=== PATIENT | male | born 1955 | race African-American/Black ===

== ENCOUNTER 2016-11-10 19:46 | Inpatient (IN) | payer MEDICAID, MEDICARE, OTHER ==
[2016-11-10 20:59] LABS: Hematocrit 52.1 % (42.0-52.0); Mean Platelet Volume 9.1 fL (7.4-10.4); Red Blood Cell (RBC) Count 5.06 mill/uL (4.70-6.10)
[2016-11-10 21:09] LABS: Neutrophil 61 % (42-75); White Blood Cell (WBC) Count 4.4 thou/uL (4.8-10.8)
--- NOTE | 2016-11-10 21:11 | RAD ---
PORTABLE UPRIGHT CHEST ONE VIEW: History: 61-year-old male with altered mental status, dyspnea, shortness of breath. Comparison: 09-02-16 FINDINGS: Heart size is normal. The lungs are clear. Monitor leads overlie the chest. IMPRESSION: No acute intrathoracic disease. POS: [facility]
[2016-11-10 21:19] LABS: ALT (SGPT) 76 U/L (8-55); AST (SGOT) 130 U/L (5-34); Alkaline Phosphatase 177 U/L (40-150); Anion Gap 20 mmol/L (10-20); BUN (Urea Nitrogen) 15 mg/dL (8.4-25.7); CK (CPK) 232 U/L (30-200); Calc. Creatinine Clearance 0 mL/min (70-130); Calcium 9.7 mg/dL (7.8-10.44); Carbon Dioxide 15 mmol/L (22-29); Chloride 106 mmol/L (98-107); Estimated GFR-MDRD 53; Globulin 6.6 g/dL (2.4-3.5); Magnesium 1.8 mg/dL (1.6-2.6); Protein, Total 9.6 g/dL (6.0-8.3)
[2016-11-10 21:20] LABS: Troponin I 0.016 ng/mL (< 0.028)
[2016-11-10 21:41] LABS: PTT 21.7 SEC (22.9-36.1)
--- NOTE | 2016-11-10 22:14 | CT ---
BRAIN CT WITHOUT IV CONTRAST: History: 61-year-old male with altered mental status and shortness of breath. Patient was found down in long term cell at 4 p.m. Comparison: 10-28-16 FINDINGS: No focal mass or midline shift. No intra or extraaxial hemorrhage. Sinuses and mastoids are clear. IMPRESSION: No acute intracranial process. No mass or bleed. POS: [facility]
[2016-11-10] MEDS ORDERED: Lactulose 10 GM/15 ML Oral Solution PR SCH (23:00)
[2016-11-11] MEDS ORDERED: Ondansetron HCl/PF 4 MG/2 ML Vial IVP PRN ×2 (00:05→00:13)
[2016-11-11] MEDS ORDERED: Ondansetron ODT 4 MG TAB SL PRN (00:05)
[2016-11-11] MEDS ORDERED: Dextrose 50% Abboject 50 ML SYRINGE SLOW IVP PRN (00:13)
[2016-11-11] MEDS ORDERED: HumaLOG 300 UNITS/3 ML VIAL SC PRN (00:13)
[2016-11-11] MEDS ORDERED: Guaifenesin DM 100-10/5 ML UDCUP PO PRN (00:13)
[2016-11-11] MEDS ORDERED: Dextrose 5% in Water 1,000 ML IV PRN (00:13)
[2016-11-11] MEDS ORDERED: Acetaminophen 325 MG TAB PO PRN (00:13)
[2016-11-11] MEDS ORDERED: Sodium Chloride 0.9% 1,000 ML IV SCH ×2 (00:15)
[2016-11-11] MEDS: Dextrose 5 % And 0.9 % NaCl 1,000 ML IV SCH ×2 (01:48→17:15)
[2016-11-11] MEDS: Scopolamine 1.5 mg/72 hour Patch TOP SCH (01:50)
--- NOTE | 2016-11-11 04:07 | HP ---
DATE OF ADMISSION: 11/10/2016 REASON FOR ADMISSION: Hepatic encephalopathy. HISTORY OF PRESENTING ILLNESS: Please note, I have seen and examined the patient on 11/10/2016. The patient was brought by corrections officers as he was found unresponsive on the floor. They went to give him his afternoon medications and apparently found him on the floor unresponsive. He was incontinent and had bowel and urine all over the place. The patient has had multiple hospitalizations here for hepatic encephalopathy and being noncompliant with medications. He is currently not oriented. He barely opens his eyes and goes back to sleep. He is maintaining airway. His labs done in the ER shows ammonia levels of 76. The CT of the brain done did not reveal any acute intracranial abnormalities. PAST MEDICAL AND SURGICAL HISTORY: History of known cirrhosis with multiple hospitalizations here, in fact he was recently discharged on the of last month, chronic atrial fibrillation, COPD, hepatitis C, cirrhosis, GERD, hypertension, prior EGDs, prior TIPS procedure. CURRENT MEDICATIONS: Patient is on spironolactone 50 mg p.o. q.a.m., Remeron 30 mg p.o. at bedtime, aspirin 81 mg p.o. daily, trazodone 50 mg p.o. at bedtime , gabapentin 300 mg p.o. daily, Protonix 40 mg p.o. daily, folic acid 1 mg p.o. daily, vitamin B12 of 1000 mcg p.o. daily, Cardizem 60 mg twice daily and Cardizem-CD 240 mg daily, Flexeril 10 mg at bedtime, thiamine 100 mg p.o. daily , lactulose 120 mL three times daily, Librium 25 mg twice daily. ALLERGIES: Allergic to PENICILLIN. PERSONAL HISTORY: Per prior records, he has been incarcerated with [facility]. Prior history of smoking. No current alcohol or illicit drugs. FAMILY HISTORY: Per prior records, no inheritable diseases, REVIEW OF SYSTEMS: Cannot be obtained as patient is not oriented. PHYSICAL EXAMINATION: GENERAL: The patient is a 61-year-old male who is currently very lethargic, barely arousable. He is maintaining airway. VITAL SIGNS: Blood pressure 146/94, pulse 110 per minute, respiratory rate 20 per minute, temperature 98.1 degrees Fahrenheit, saturating 100% on room air. NECK: Supple, no elevated JVD. HEENT: Eyes, extraocular muscles intact, pupils are reacting to light. Oral cavity, mucous membranes are dry. No exudates or congestion. CARDIOVASCULAR SYSTEM: S1 and S2 heard. Irregular rhythm. RESPIRATORY SYSTEM: Air entry 1+ bilateral. Scattered rhonchi plus no rales or wheezes. ABDOMEN: Soft, bowel sounds heard. No tenderness, rigidity, or guarding. EXTREMITIES: No peripheral edema or calf tenderness. VASCULAR SYSTEM: Peripheral pulses 1+ bilateral. No ischemic ulcerations or gangrene. CENTRAL NERVOUS SYSTEM: No gross focal deficits seen. Patient is very lethargic and is not oriented. PSYCHIATRIC SYSTEM: Cannot be assessed as patient is lethargic and not oriented. LABORATORY DATA AND X-RAY FINDINGS: White count of 4.4, hemoglobin and hematocrit of 16 and 52, platelet count is 130 with MCV of 103 and 61% neutrophils. PT/INR is 18 and 1.5, PTT 21. Serum bicarbonate 15, BUN 15, creatinine 1.6, total bilirubin 2.0, AST 130, ALT 76, alkaline phosphatase 177, CK level is 232, BNP is 198, albumin is 3.0. CT of the brain shows no acute intracranial process, no mass or bleed seen. Chest x-ray done shows no acute cardiopulmonary abnormalities. EKG done, shows atrial fibrillation at 132 beats per minute with nonspecific ST-T wave changes. CLINICAL IMPRESSION AND PLAN: Patient will be admitted to IMCU for hepatic encephalopathy. Patient is known to be noncompliant with medications. He is currently incarcerated. He has received 200 grams of lactulose per rectal in the ER and hopefully, he will wake up, and once awake he will take oral lactulose at 20 grams four times daily. We will continue his spironolactone, folic acid, thiamine as before. He does not seem to be having any active infections at present. We will continue most of his home medications. He will be on D5 normal saline at 75 mL per hour until he is fully awake. We will increase his Cardizem to 240 mg twice daily. We will closely monitor for bradycardia or AV block. We will also consult Dr. Chon Rojas who is command and control for Gastroenterology. Patient has lom-yn-lcyibvuh DNR, which was signed on 07/2016, and we will continue him as a DNR unless he revokes his DNR status. [facility] NETWORKMonica
[2016-11-11 05:18] LABS: Mean Platelet Volume 8.8 fL (7.4-10.4); Red Blood Cell (RBC) Count 4.66 mill/uL (4.70-6.10); White Blood Cell (WBC) Count 5.8 thou/uL (4.8-10.8)
[2016-11-11 05:39] LABS: Neutrophil 46 % (42-75)
[2016-11-11 05:57] LABS: ALT (SGPT) 58 U/L (8-55); AST (SGOT) 102 U/L (5-34); Alkaline Phosphatase 136 U/L (40-150); Anion Gap 13 mmol/L (10-20); BUN (Urea Nitrogen) 15 mg/dL (8.4-25.7); Bilirubin, Total 1.7 mg/dL (0.2-1.2); Calc. Creatinine Clearance 0 mL/min (70-130); Calcium 8.8 mg/dL (7.8-10.44); Carbon Dioxide 16 mmol/L (22-29); Chloride 111 mmol/L (98-107); Estimated GFR-MDRD 59; Globulin 5.3 g/dL (2.4-3.5); Protein, Total 7.5 g/dL (6.0-8.3)
[2016-11-11 06:09] VITALS: BMI 31.0
[2016-11-11] MEDS ORDERED: FLU VACC QS2017-18 36 mo. & older 0.5 ML SYRINGE IM ONE (09:00)
[2016-11-11] MEDS: Aspirin 81 mg Enteric Coated Tablet PO SCH (12:43)
[2016-11-11] MEDS: Cyanocobalamin (Vitamin B-12) 1,000 MCG TAB PO SCH (12:43)
[2016-11-11] MEDS: Folic Acid 1 MG TAB PO SCH (12:44)
[2016-11-11] MEDS: Spironolactone 100 MG TAB PO SCH (12:44)
--- NOTE | 2016-11-11 14:42 | PDOC.PN ---
- Subjective Encounter Start Date: 11/11/16 Encounter Start Time: 14:25 Subjective: Nsg reports persistent AMS. Some mumbling to staff but not interactive. - Objective Resuscitation Status: Resuscitation Status DNR:Do Not Resuscitate MAR Reviewed: Yes Vital Signs & Weight: Vital Signs (12 hours) Temp Pulse Resp BP Pulse Ox 11/11/16 14:06 122 H 11/11/16 11:18 97.7 F 122 H 20 112/75 100 11/11/16 07:27 97.8 F 105 H 18 100 11/11/16 07:15 97.6 F 115 H 20 121/96 H 100 11/11/16 04:00 97.8 F 105 H 18 134/87 100 I&O: 11/10/16 11/11/16 11/12/16 06:59 06:59 06:59 Intake Total 315 Balance 315 Result Diagrams: 11/11/16 04:35 11/11/16 04:35 Additional Labs: Accuchecks 11/11/16 11/11/16 11/11/16 11:48 06:32 01:48 POC Glucose 73 75 65 L Laboratory Tests 01/13/16 01/13/16 01/13/16 11:48 11:48 11:48 Potassium 4.6 Carbon Dioxide 19 L Total Bilirubin 2.2 H AST 97 H Ammonia 118 H TSH 3rd Generation 1.4893 U Benzodiazepines Scrn U Cocaine Metab Screen 01/13/16 01/14/16 11/10/16 13:25 04:40 20:34 Potassium Carbon Dioxide Total Bilirubin AST Ammonia 53 76 H TSH 3rd Generation U Benzodiazepines Scrn Detected H U Cocaine Metab Screen Detected H EKG Reviewed by me: Yes (Tele - A-fib with RVR in 120's) Phys Exam - Physical Examination lethargic, opens eyes to name, minimal tracking HEENT: PERRLA, oral pharynx no lesions Neck: no JVD, supple Respiratory: no wheezing, clear to auscultation bilateral tachycardic Cardiovascular: irregular Gastrointestinal: soft, non-tender, no distention, positive bowel sounds Musculoskeletal: no edema, pulses present Neurological: normal sensation, moves all 4 limbs Skin: normal turgor, cap refill <2 seconds Dx/Plan (1) Hepatic encephalopathy Code(s): K72.90 - HEPATIC FAILURE, UNSPECIFIED WITHOUT COMA Status: Chronic Comment: Acute/Chronic encephalopathy multifactorial, supportive, Lactulose 40gm CA QID prn (2) Atrial fibrillation with RVR Code(s): I48.91 - UNSPECIFIED ATRIAL FIBRILLATION Status: Acute Comment: Rate variable, resume Cardizem (3) Hyperammonemia Code(s): E72.20 - DISORDER OF UREA CYCLE METABOLISM, UNSPECIFIED Status: Acute Comment: Appears chronic, Lactulose (4) CKD (chronic kidney disease) stage 3, GFR 30-59 ml/min Code(s): N18.3 - CHRONIC KIDNEY DISEASE, STAGE 3 (MODERATE) Status: Chronic Comment: Appears baseline CKD (5) Hepatitis C Code(s): B19.20 - UNSPECIFIED VIRAL HEPATITIS C WITHOUT HEPATIC COMA Status: Chronic Qualifiers: (6) Hypertension Code(s): I10 - ESSENTIAL (PRIMARY) HYPERTENSION Status: Chronic Qualifiers: Comment: Stable currently - Plan adoption social worker, DVT proph w/SCDs Stable overall -: Resume Lactulose CA -: Resume Cardizem 240mg BID -: Consider Palliative care -: AM lab: Ammonia, CMP * .
[2016-11-11] MEDS: Lactulose 10 GM/15 ML Oral Solution PR SCH ×2 (17:15→22:21)
--- NOTE | 2016-11-11 18:00 | CON ---
DATE OF CONSULTATION: 11/11/2016 CHIEF COMPLAINT: Confusion. HISTORY OF PRESENT ILLNESS: Mr. Dominguez is a 61-year-old man who was admitted with altered mental sta tus. He was apparently found unresponsive his present fell yesterday afternoon having been incontin ent of feces and urine. He was confused and obtunded and transferred to the hospital for further ca re. He was admitted and given lactulose enema and currently the patient only arouses enough to moan and lift his head, but he does not interact verbally. He has had no known bloody stool output or v omiting. He has had multiple hospitalizations at [facility] over the last couple years with altered mental status. PAST MEDICAL HISTORY: Hepatitis C, cirrhosis, atrial fibrillation, COPD, hypertension, gastroesopha geal reflux disease. PAST SURGICAL HISTORY: EGD and TIPS procedure. FAMILY HISTORY: Negative for GI malignancy. SOCIAL HISTORY: He had a positive tox screen for cocaine back in May. Otherwise, this history is not immediately known. ALLERGIES: PENICILLIN. CURRENT INPATIENT MEDICATIONS: Include spironolactone 50 mg daily, SCOPOLAMINE, THIAMINE, TRAZODONE , DILTIAZEM, B12, ASPIRIN, FOLIC ACID, and LACTULOSE. REVIEW OF SYSTEMS: Unobtainable as the patient is confused and moaning. PHYSICAL EXAMINATION: VITAL SIGNS: Temperature 97.7, pulse 122, blood pressure 108/71. GENERAL: He moans and is otherwise not interactive. EYES: Have no scleral icterus. OROPHARYNX: Clear, without lesions. NECK: No cervical or supraclavicular lymphadenopathy. LUNGS: Clear to auscultation bilaterally. HEART: Tachycardic, S1, S2. ABDOMEN: Soft, without guarding. No obvious distention with ascites. Bowel sounds are present. EXTREMITIES: Trace lower extremity edema. LABORATORY DATA AND IMAGING: White blood cell count 5.8, hemoglobin 15.5, platelets 120, bilirubin is 1.7, creatinine 1.47, and INR 1.5. Baseline creatinine is not far from the current level. AST 1 02, ALT 58, alkaline phosphatase 136. He had a CT of the brain which was negative. His ammonia lev el is 76 and albumin 2.2. IMPRESSION: 1. Hepatic encephalopathy. He is apparently been noncompliant with lactulose at the retirement. In ad dition to this, he has had a TIPS procedure, which is likely compounding the encephalopathy. 2. Decompensated cirrhosis with elevated bilirubin, elevated INR, elevated creatinine, and low albu min. He is further complicated with hepatic encephalopathy. He has had portal hypertension and has required TIPS previously. Last esophagogastroduodenoscopy by Dr. Forrest in 2014 was normal. Unclear if the TIPS was placed for refractory ascites or variceal bleeding since that time or prior to then . 3. Chronic renal insufficiency. His creatinine is near baseline and he is currently on spironolact one alone at 50 mg daily. 4. Hepatoma screening. Unsure when his last alphafetoprotein level was drawn. He had an abdomen a nd pelvis CT in August without IV contrast and an abdominal ultrasound in 01/2016, which showed cholel ithiasis and gallbladder wall thickening. RECOMMENDATIONS: 1. We will give lactulose. We will try this by NG tube initially with 45 mL every 4 hours, then ba ck off if he develops diarrhea. If we were unable to adequately secure an NG tube, then lactulose e nema can be given as a 300 mL lactulose and 700 mL of water. 2. Xifaxan 550 mg twice daily. 3. Ultimately, if he continues to have refractory encephalopathy, his TIPS shunt may need to be lionel rowed or closed. It seems that medication noncompliance; however, has been contributing based on hi story. 4. Check ultrasound of the liver and alphafetoprotein for hepatoma screening. 5. No obvious other primary cause for encephalopathy including infection or GI bleed or significant electrolyte abnormality or fluid status is apparent.
--- NOTE | 2016-11-11 22:06 | ULT ---
GALLBLADDER ULTRASOUND: 11/11/16 CLINICAL HISTORY: Cirrhosis, encephalopathy. FINDINGS: The liver demonstrates a normal volume. There is no focal hepatic lesion identified. A shadowing cho lelithiasis is present. There is thickening of the gallbladder at 5 mm. Common duct is normal in naida meter between 3 and 4 cm. IMPRESSION: 1. Shadowing cholelithiasis. There is also gallbladder thickening. Recommend clinical correlati on to exclude cholecystitis. 2. Additional details are described above. POS: [facility]
[2016-11-11] MEDS: Rifaximin 550 MG TAB PO SCH (22:17)
[2016-11-11] MEDS: traZODone HCl 50 MG TAB PO PRN (22:17)
[2016-11-12 05:03] LABS: ALT (SGPT) 68 U/L (8-55); AST (SGOT) 124 U/L (5-34); Alkaline Phosphatase 154 U/L (40-150); Anion Gap 16 mmol/L (10-20); BUN (Urea Nitrogen) 17 mg/dL (8.4-25.7); Bilirubin, Total 2.1 mg/dL (0.2-1.2); Calc. Creatinine Clearance 65 mL/min (70-130); Calcium 8.9 mg/dL (7.8-10.44); Carbon Dioxide 16 mmol/L (22-29); Chloride 111 mmol/L (98-107); Estimated GFR-MDRD 48; Globulin 5.8 g/dL (2.4-3.5); Protein, Total 8.5 g/dL (6.0-8.3)
[2016-11-12] MEDS: Dextrose 5 % And 0.9 % NaCl 1,000 ML IV SCH ×2 (06:14→14:14)
[2016-11-12] MEDS: Lactulose 10 GM/15 ML Oral Solution PR SCH ×2 (08:37→13:22)
[2016-11-12] MEDS: Rifaximin 550 MG TAB PO SCH ×2 (08:38→20:10)
[2016-11-12] MEDS: Spironolactone 100 MG TAB PO SCH (08:38)
[2016-11-12] MEDS: Folic Acid 1 MG TAB PO SCH (08:51)
[2016-11-12] MEDS: Aspirin 81 mg Enteric Coated Tablet PO SCH (08:51)
[2016-11-12] MEDS: Cyanocobalamin (Vitamin B-12) 1,000 MCG TAB PO SCH (08:51)
--- NOTE | 2016-11-12 10:23 | PDOC.PN ---
- Subjective Encounter Start Date: 11/12/16 Encounter Start Time: 10:20 Subjective: Nsg reports pt taking po meds but remains lethargic. Occasionally talks -: and responds. - Objective Resuscitation Status: Resuscitation Status DNR:Do Not Resuscitate MAR Reviewed: Yes Vital Signs & Weight: Vital Signs (12 hours) Temp Pulse Resp BP Pulse Ox 11/12/16 08:37 98 11/12/16 08:00 97.1 F L 98 22 H 100 11/12/16 07:54 97.1 F L 98 22 H 130/80 100 11/12/16 03:00 98.1 F 99 24 H 109/92 H 100 11/12/16 00:00 97.1 F L 99 22 H 128/82 100 Weight Weight 220 lb 6.4 oz I&O: 11/11/16 11/12/16 11/13/16 06:59 06:59 06:59 Intake Total 315 925 Balance 315 925 Result Diagrams: 11/11/16 04:35 11/12/16 04:04 Additional Labs: Accuchecks 11/12/16 11/11/16 11/11/16 06:16 23:39 18:01 POC Glucose 112 H 100 97 11/11/16 11:48 POC Glucose 73 Laboratory Tests 01/13/16 01/13/16 01/13/16 11:48 11:48 11:48 Potassium 4.6 Carbon Dioxide 19 L Total Bilirubin 2.2 H AST 97 H Ammonia 118 H TSH 3rd Generation 1.4893 U Benzodiazepines Scrn U Cocaine Metab Screen 01/13/16 01/14/16 11/10/16 13:25 04:40 20:34 Potassium Carbon Dioxide Total Bilirubin AST Ammonia 53 76 H TSH 3rd Generation U Benzodiazepines Scrn Detected H U Cocaine Metab Screen Detected H 11/12/16 04:04 Potassium Carbon Dioxide Total Bilirubin AST Ammonia 123 H TSH 3rd Generation U Benzodiazepines Scrn U Cocaine Metab Screen EKG Reviewed by me: Yes (Tele - A-fib in 90-100's) Phys Exam - Physical Examination lethargic, opens eyes briefly to name then falls asleep HEENT: oral pharynx no lesions Neck: no JVD, supple Respiratory: no wheezing, clear to auscultation bilateral Cardiovascular: RRR Gastrointestinal: soft, non-tender, no distention, positive bowel sounds Musculoskeletal: no edema, pulses present Neurological: moves all 4 limbs Skin: cap refill <2 seconds Dx/Plan (1) Hepatic encephalopathy Code(s): K72.90 - HEPATIC FAILURE, UNSPECIFIED WITHOUT COMA Status: Chronic Comment: Acute/Chronic encephalopathy multifactorial, supportive, Lactulose 80gm NE BID (2) Atrial fibrillation with RVR Code(s): I48.91 - UNSPECIFIED ATRIAL FIBRILLATION Status: Acute Comment: Rate variable, resume Cardizem (3) Hyperammonemia Code(s): E72.20 - DISORDER OF UREA CYCLE METABOLISM, UNSPECIFIED Status: Acute Comment: Variable levels, chronic, Lactulose (4) CKD (chronic kidney disease) stage 3, GFR 30-59 ml/min Code(s): N18.3 - CHRONIC KIDNEY DISEASE, STAGE 3 (MODERATE) Status: Chronic Comment: Appears baseline CKD (5) Hepatitis C Code(s): B19.20 - UNSPECIFIED VIRAL HEPATITIS C WITHOUT HEPATIC COMA Status: Chronic Qualifiers: (6) Hypertension Code(s): I10 - ESSENTIAL (PRIMARY) HYPERTENSION Status: Chronic Qualifiers: Comment: Stable currently - Plan psychologist social, DVT proph w/SCDs Lactulose enema 80gm BID -: Palliative care -: Continue Cardizem 240mg BID -: Likely may resume hospice as clinical condition not improving to any -: significant extent * AM lab: Ammonia
--- NOTE | 2016-11-12 14:04 | PRG ---
DATE OF SERVICE: 11/12/2016 SUBJECTIVE: Mr. Dominguez is awake today. He can tell me his name, he is lying in bed, mostly yelling, but he does answer some questions and repeats himself. OBJECTIVE: VITAL SIGNS: Temperature 97.1, pulse 100, blood pressure 123/93. GENERAL: He is in no acute distress. He is awake. He is oriented to his name. He does answer que stions. EYES: Have no scleral icterus. LUNGS: Clear to auscultation bilaterally. HEART: Regular rate and rhythm. ABDOMEN: Soft, nontender, nondistended. Bowel sounds are present. EXTREMITIES: Trace lower extremity edema. LABORATORY DATA: Ammonia is 123 today, up from 76 yesterday, bilirubin 2.1, AST 124, ALT 68, alkali ne phosphatase 154. White blood cell count 5.8, hemoglobin 5.5, platelets 120. IMPRESSION: 1. Hepatic encephalopathy. While his ammonia went up today, he is actually awake and responsive an d oriented to his name. His current mental status with repetitive words and yelling is not due to h epatic encephalopathy. This is more consistent with schizophrenia or other underlying mental illnes s. He is wake enough to swallow now and his lactulose has been changed to oral administration. 2. Decompensated cirrhosis. 3. Chronic renal insufficiency. 4. Hepatoma screening. Ultrasound of the liver showed cholelithiasis, but no focal hepatic lesion. Alphafetoprotein is normal at 3.0. RECOMMENDATIONS: 1. He has been changed to lactulose 60 mL 3 times a day. This can be titrated to three soft bowel movements per day. 2. Continue Xifaxan. 3. Dr. Forrest should be back tomorrow.
[2016-11-13] MEDS: Dextrose 5 % And 0.9 % NaCl 1,000 ML IV SCH ×2 (06:49→18:13)
[2016-11-13] MEDS: Spironolactone 100 MG TAB PO SCH (07:53)
[2016-11-13] MEDS: Cyanocobalamin (Vitamin B-12) 1,000 MCG TAB PO SCH (07:53)
[2016-11-13] MEDS: Folic Acid 1 MG TAB PO SCH (07:54)
[2016-11-13] MEDS: Aspirin 81 mg Enteric Coated Tablet PO SCH (07:54)
[2016-11-13] MEDS: Rifaximin 550 MG TAB PO SCH ×2 (07:54→21:48)
--- NOTE | 2016-11-13 13:19 | PRG ---
DATE OF SERVICE: 11/13/2016 SUBJECTIVE: Mr. Dominguez is sleepier today. When I talk to him, he will open his eyes and he is orien jovanni to his name, but he falls right back to sleep. He has had 1 smear of a stool this morning and o nly 1 stool recorded yesterday. It is unclear if he has actually had more stool output, than that, but nursing is unaware of any more than what is recorded. PHYSICAL EXAMINATION: VITAL SIGNS: Temperature 97.8, blood pressure 111/64, pulse 84. GENERAL: He is in no acute distress. He is arousable, but falls right back asleep. LUNGS: Clear to auscultation bilaterally. HEART: Regular rate and rhythm. ABDOMEN: Soft, nontender, nondistended. Bowel sounds are present. EXTREMITIES: Trace lower extremity edema. LABORATORY DATA: White blood cell count 5.8, hemoglobin 15.5, platelets 120, those are from 017. IMPRESSION: 1. Hepatic encephalopathy. At baseline, he has confusion and incoherence related to his underlying mental disease or possibly schizophrenia. The hepatic encephalopathy, though seems to have a flare d back up today to some degree in that he is drowsy and falls asleep when not stimulated. Only one stool per day, has been recorded. I will increase his lactulose again today and again ask nursing t o record all stool output in detail. 2. Decompensated cirrhosis. 3. Chronic renal insufficiency. RECOMMENDATIONS: 1. We will increase the lactulose to 60 mL 4 times a day; however, I am concerned this may cause di arrhea for him. There has only been 1 bowel movement per day recorded on the 60 mL 3 times a day. 2. Continue Xifaxan. 3. If he continues to have problems with recurrent encephalopathy, then consideration should be giv en for narrowing or closure of the tips. This would have to be done at a tertiary institution. 4. Hopefully he will discharge home in the next couple of days once he reaches a steady state with his lactulose.
--- NOTE | 2016-11-13 15:47 | PDOC.PN ---
- Subjective Encounter Start Date: 11/13/16 Encounter Start Time: 08:00 Subjective: pt is more awake , however ammonia level still high. has not had a BM - Objective Resuscitation Status: Resuscitation Status DNR:Do Not Resuscitate Vital Signs & Weight: Vital Signs (12 hours) Temp Pulse Resp BP BP Pulse Ox 11/13/16 11:27 97.8 F 84 16 111/64 100 11/13/16 08:17 97.6 F 74 18 100 11/13/16 08:16 97.6 F 74 18 123/80 100 11/13/16 07:53 68 123/80 11/13/16 04:00 97.6 F 68 20 126/67 95 Weight Weight 220 lb 6.4 oz I&O: 11/12/16 11/13/16 11/14/16 06:59 06:59 06:59 Intake Total 1802 Balance 1802 Result Diagrams: 11/11/16 04:35 11/12/16 04:04 Additional Labs: Accuchecks 11/13/16 11/13/16 11/13/16 11:06 06:06 00:58 POC Glucose 114 H 103 97 11/12/16 18:52 POC Glucose 98 Phys Exam - Physical Examination HEENT: PERRLA slightly dry MM Neck: no nodes Respiratory: no wheezing Cardiovascular: RRR, no significant murmur, no rub, gallop Gastrointestinal: soft, non-tender, no distention, positive bowel sounds Musculoskeletal: no edema drowsy , no focal defcit Skin: no rash Dx/Plan (1) Atrial fibrillation with RVR Code(s): I48.91 - UNSPECIFIED ATRIAL FIBRILLATION Status: Acute Comment: Rate variable, resume Cardizem (2) CKD (chronic kidney disease) Code(s): N18.9 - CHRONIC KIDNEY DISEASE, UNSPECIFIED Status: Acute (3) Hyperammonemia Code(s): E72.20 - DISORDER OF UREA CYCLE METABOLISM, UNSPECIFIED Status: Acute Comment: Variable levels, chronic, Lactulose (4) Chronic atrial fibrillation Code(s): I48.2 - CHRONIC ATRIAL FIBRILLATION Status: Chronic (5) Cirrhosis of liver Code(s): K74.60 - UNSPECIFIED CIRRHOSIS OF LIVER Status: Chronic (6) Hepatic encephalopathy Code(s): K72.90 - HEPATIC FAILURE, UNSPECIFIED WITHOUT COMA Status: Chronic Comment: Acute/Chronic encephalopathy multifactorial, supportive, Lactulose 80gm OR BID (7) Hepatitis C Code(s): B19.20 - UNSPECIFIED VIRAL HEPATITIS C WITHOUT HEPATIC COMA Status: Chronic Qualifiers: (8) Hypertension Code(s): I10 - ESSENTIAL (PRIMARY) HYPERTENSION Status: Chronic Qualifiers: Comment: Stable currently (9) Macrocytic anemia Code(s): D53.9 - NUTRITIONAL ANEMIA, UNSPECIFIED Status: Chronic (10) Thrombocytopenia Code(s): D69.6 - THROMBOCYTOPENIA, UNSPECIFIED Status: Chronic (11) Hepatic encephalopathy Code(s): K72.90 - HEPATIC FAILURE, UNSPECIFIED WITHOUT COMA Status: Resolved - Plan we will check labs. agree to increase dose of lactulose. recheck AM labs -: Monitor neuro status * .
[2016-11-14] MEDS: Scopolamine 1.5 mg/72 hour Patch TOP SCH (01:59)
[2016-11-14 05:37] LABS: Hematocrit 46.1 % (42.0-52.0); Mean Platelet Volume 9.4 fL (7.4-10.4); Neutrophil 54 % (42-75); Red Blood Cell (RBC) Count 4.54 mill/uL (4.70-6.10); White Blood Cell (WBC) Count 5.5 thou/uL (4.8-10.8)
[2016-11-14 06:09] LABS: Chloride 115 mmol/L (98-107)
[2016-11-14 06:10] LABS: Calcium 8.7 mg/dL (7.8-10.44)
[2016-11-14 06:12] LABS: Anion Gap 13 mmol/L (10-20); Carbon Dioxide 16 mmol/L (22-29)
[2016-11-14 06:13] LABS: Calc. Creatinine Clearance 91 mL/min (70-130); Estimated GFR-MDRD 70
[2016-11-14 06:14] LABS: BUN (Urea Nitrogen) 13 mg/dL (8.4-25.7)
[2016-11-14] MEDS: Dextrose 5 % And 0.9 % NaCl 1,000 ML IV SCH (06:32)
[2016-11-14] MEDS: Folic Acid 1 MG TAB PO SCH (08:42)
[2016-11-14] MEDS: Spironolactone 100 MG TAB PO SCH (08:42)
[2016-11-14] MEDS: Cyanocobalamin (Vitamin B-12) 1,000 MCG TAB PO SCH (08:43)
[2016-11-14] MEDS: Rifaximin 550 MG TAB PO SCH ×2 (08:43→21:50)
[2016-11-14] MEDS: Aspirin 81 mg Enteric Coated Tablet PO SCH (08:44)
--- NOTE | 2016-11-14 14:52 | PRG ---
DATE OF SERVICE: 11/14/2016 GI INPATIENT DAILY PROGRESS NOTE SUBJECTIVE: I am meeting Mr. Dominguez for the first time today. He seems quite wide awake and per jimbo sing staff, he has been awake all day. After lactulose was increased, he has been having large expl osive bowel movements so far today. He is not complaining of any abdominal pain. Ammonia level is only 54 today. He remains verbally abusive to all physicians and staff. PHYSICAL EXAMINATION: VITAL SIGNS: Temperature 97.7, pulse 69, blood pressure 126/67, 98% oxygen saturation on room air. GENERAL: Lying in bed comfortably, verbally abusive, responding to internal stimuli. HEART: Regular rate and rhythm. LUNGS: Clear to auscultation bilaterally. ABDOMEN: Soft, bowel sounds active. Nontender. EXTREMITIES: No peripheral edema. LABORATORY STUDIES: Sodium 140, potassium 3.8, BUN 13, creatinine 1.27. Ammonia only 54, glucose 1 88, WBC 5.5, hemoglobin 15.3, and platelets 88. ASSESSMENT AND PLAN: 1. Hepatic encephalopathy, appears to be resolved. 2. Psychiatric issues, ongoing. 3. Cirrhosis. Clinically, the patient is not manifesting any further signs of overt encephalopathy today. He is having quite a bit of diarrhea as I would back off the lactulose back to 30 mg 4 time s daily. In the future, titrate to achieve 2-3 loose bowel movements daily. Would continue the rif aximin as well. 4. GI will sign off, but please call back with questions or concerns.
--- NOTE | 2016-11-14 15:38 | PDOC.PN ---
- Subjective Encounter Start Date: 11/19/16 Encounter Start Time: 09:00 Subjective: pt about the same. not opening his eyes to name. however, as per RN eating - Objective Resuscitation Status: Resuscitation Status DNR:Do Not Resuscitate Vital Signs & Weight: Vital Signs (12 hours) Temp Pulse Pulse Pulse Resp BP BP 11/14/16 15:13 96.7 F L 66 16 11/14/16 11:04 97.7 F 69 20 11/14/16 08:52 68 69 116/79 11/14/16 08:43 80 131/69 11/14/16 07:15 97.9 F 80 18 11/14/16 07:14 97.9 F 99 15 BP BP Pulse Ox 11/14/16 15:13 111/64 99 11/14/16 11:04 126/67 98 11/14/16 08:52 120/72 11/14/16 08:43 11/14/16 07:15 99 11/14/16 07:14 131/69 99 Weight Weight 226 lb 3.108 oz I&O: 11/13/16 11/14/16 11/15/16 06:59 06:59 06:59 Intake Total 1802 2370 200 Balance 1802 2370 200 Result Diagrams: 11/14/16 04:33 11/14/16 04:33 Additional Labs: Accuchecks 11/14/16 11/14/16 11/13/16 11:58 05:22 18:12 POC Glucose 188 H 169 H 118 H Phys Exam - Physical Examination HEENT: PERRLA edentulous Neck: no nodes, no JVD, supple Respiratory: no wheezing Cardiovascular: RRR, no significant murmur Gastrointestinal: soft, non-tender, no distention Musculoskeletal: no edema Neurological: non-focal Psychiatric: A&O x 3 Skin: no rash Dx/Plan (1) Atrial fibrillation with RVR Code(s): I48.91 - UNSPECIFIED ATRIAL FIBRILLATION Status: Acute Comment: Rate variable, resume Cardizem (2) CKD (chronic kidney disease) Code(s): N18.9 - CHRONIC KIDNEY DISEASE, UNSPECIFIED Status: Acute (3) Hyperammonemia Code(s): E72.20 - DISORDER OF UREA CYCLE METABOLISM, UNSPECIFIED Status: Acute Comment: Variable levels, chronic, Lactulose (4) Chronic atrial fibrillation Code(s): I48.2 - CHRONIC ATRIAL FIBRILLATION Status: Chronic (5) Cirrhosis of liver Code(s): K74.60 - UNSPECIFIED CIRRHOSIS OF LIVER Status: Chronic (6) Hepatic encephalopathy Code(s): K72.90 - HEPATIC FAILURE, UNSPECIFIED WITHOUT COMA Status: Chronic Comment: Acute/Chronic encephalopathy multifactorial, supportive, Lactulose 80gm [place] BID (7) Hepatitis C Code(s): B19.20 - UNSPECIFIED VIRAL HEPATITIS C WITHOUT HEPATIC COMA Status: Chronic Qualifiers: (8) Hypertension Code(s): I10 - ESSENTIAL (PRIMARY) HYPERTENSION Status: Chronic Qualifiers: Comment: Stable currently (9) Macrocytic anemia Code(s): D53.9 - NUTRITIONAL ANEMIA, UNSPECIFIED Status: Chronic (10) Thrombocytopenia Code(s): D69.6 - THROMBOCYTOPENIA, UNSPECIFIED Status: Chronic (11) Hepatic encephalopathy Code(s): K72.90 - HEPATIC FAILURE, UNSPECIFIED WITHOUT COMA Status: Resolved - Plan pt has normal ammonia level , still with AMS. will get neuro consult -: will decrease iv fluids . will transfer to medical floor * .
[2016-11-14] MEDS: traZODone HCl 50 MG TAB PO PRN (21:51)
[2016-11-15] MEDS: Dextrose 5 % And 0.9 % NaCl 1,000 ML IV SCH (06:06)
[2016-11-15] MEDS: Aspirin 81 mg Enteric Coated Tablet PO SCH (10:08)
[2016-11-15] MEDS: Cyanocobalamin (Vitamin B-12) 1,000 MCG TAB PO SCH (10:08)
[2016-11-15] MEDS: Folic Acid 1 MG TAB PO SCH (10:09)
[2016-11-15] MEDS: Rifaximin 550 MG TAB PO SCH ×2 (10:11→21:17)
[2016-11-15] MEDS: Spironolactone 25 MG TAB PO SCH (10:15)
[2016-11-15 11:07] LABS: Anion Gap 11 mmol/L (10-20); BUN (Urea Nitrogen) 11 mg/dL (8.4-25.7); Calc. Creatinine Clearance 90 mL/min (70-130); Calcium 8.5 mg/dL (7.8-10.44); Carbon Dioxide 19 mmol/L (22-29); Chloride 108 mmol/L (98-107); Estimated GFR-MDRD 70
[2016-11-15 12:07] LABS: Band 3 % (5-11); Mean Platelet Volume 9.2 fL (7.4-10.4); Neutrophil 61 % (42-75); Reactive Lymphocytes 1 % (0-10); Red Blood Cell (RBC) Count 4.19 mill/uL (4.70-6.10)
--- NOTE | 2016-11-15 12:21 | CON ---
DATE OF CONSULTATION: 11/15/2016 NEUROLOGY CONSULTATION CONSULTING PHYSICIAN: Hospitalist Service. ASSESSMENT: 1. Probable dementia. 2. History of hepatic encephalopathy. PLAN: 1. CT scan of the brain. 2. Seroquel 25 mg b.i.d. and titrate upward if necessary for behavior control. HISTORY OF PRESENT ILLNESS: Mr. Dominguez is a 61-year-old man who has been in the local group home system now for some time. He charged with breaking and entering, the officer there is watching him and has seen him now for an interval of time and gotten to know him. He has persistent inappropriate behav ior. He is constantly babbling about 1 issue or another. He has not back it appropriately for quit e sometime now. He was in a longterm for an interval of time and tended to wander in the people 's rooms and cause trouble. He was transferred back to the group home as a result of his behavior. The patient is unable to give me any type of history. PAST MEDICAL HISTORY: Otherwise unknown. FAMILY HISTORY: Unknown. SOCIAL HISTORY: Unknown. ALLERGIES: As per chart. MEDICATIONS: Reviewed. PHYSICAL EXAMINATION: GENERAL: Appears to be well-nourished man who is four-point restraints. HEENT: Pupils are equal. Conjunctivae are clear. Cranium is normocephalic and atraumatic. NECK: Supple, no lymphadenopathy noted. EXTREMITIES: No cyanosis, clubbing or edema. NEUROLOGIC: His speech was fluent and clear. He was oriented to person and place. His face appear ed to be symmetric. He had symmetric strength. Sensation appeared to be grossly symmetric. Planta r responses were downgoing bilaterally. No abnormal movements were seen. LABORATORY STUDIES: Reviewed with an ammonia level of 54. SUMMARY: A 61-year-old man with extended interval of inappropriate behavior, suggestive of a baseli ne dementia, given his history of cirrhosis, hepatitis C, may be somewhat of a contributing factor a s well. It is unlikely that will be any correctable etiology, but hopefully we can do something to help deal with his behavior.
[2016-11-15] MEDS: Spironolactone 100 MG TAB PO SCH (14:10)
--- NOTE | 2016-11-15 15:15 | PDOC.PN ---
- Subjective Encounter Start Date: 11/15/16 Encounter Start Time: 11:35 -: non-verbal Subjective: sleeping. as per RN , was awake in night -: was agitated, abusive. currently does not answer questions - Objective Resuscitation Status: Resuscitation Status DNR:Do Not Resuscitate Vital Signs & Weight: Vital Signs (12 hours) Temp Pulse Resp BP Pulse Ox 11/15/16 10:07 86 11/15/16 08:00 97.9 F 86 18 108/72 96 11/15/16 04:00 97.9 F 86 18 90/60 96 Weight Weight 226 lb 3.108 oz I&O: 11/14/16 11/15/16 11/16/16 06:59 06:59 06:59 Intake Total 2370 200 Balance 2370 200 Result Diagrams: 11/15/16 10:35 11/15/16 10:35 Additional Labs: Accuchecks 11/15/16 11/14/16 05:11 17:57 POC Glucose 76 91 Phys Exam - Physical Examination HEENT: moist MMs, sclera anicteric Neck: no nodes, no JVD Respiratory: no wheezing, no rales, no rhonchi Cardiovascular: RRR, no significant murmur, no rub Gastrointestinal: soft, non-tender, no distention, positive bowel sounds Musculoskeletal: no edema, pulses present Neurological: non-focal Psychiatric: A&O x 3 Skin: no rash Dx/Plan (1) Atrial fibrillation with RVR Code(s): I48.91 - UNSPECIFIED ATRIAL FIBRILLATION Status: Acute Comment: Rate variable, resume Cardizem (2) CKD (chronic kidney disease) Code(s): N18.9 - CHRONIC KIDNEY DISEASE, UNSPECIFIED Status: Acute (3) Hyperammonemia Code(s): E72.20 - DISORDER OF UREA CYCLE METABOLISM, UNSPECIFIED Status: Acute Comment: Variable levels, chronic, Lactulose (4) Chronic atrial fibrillation Code(s): I48.2 - CHRONIC ATRIAL FIBRILLATION Status: Chronic (5) Cirrhosis of liver Code(s): K74.60 - UNSPECIFIED CIRRHOSIS OF LIVER Status: Chronic (6) Hepatic encephalopathy Code(s): K72.90 - HEPATIC FAILURE, UNSPECIFIED WITHOUT COMA Status: Chronic Comment: Acute/Chronic encephalopathy multifactorial, supportive, Lactulose 80gm [place] BID (7) Hepatitis C Code(s): B19.20 - UNSPECIFIED VIRAL HEPATITIS C WITHOUT HEPATIC COMA Status: Chronic Qualifiers: (8) Hypertension Code(s): I10 - ESSENTIAL (PRIMARY) HYPERTENSION Status: Chronic Qualifiers: Comment: Stable currently (9) Macrocytic anemia Code(s): D53.9 - NUTRITIONAL ANEMIA, UNSPECIFIED Status: Chronic (10) Thrombocytopenia Code(s): D69.6 - THROMBOCYTOPENIA, UNSPECIFIED Status: Chronic (11) Hepatic encephalopathy Code(s): K72.90 - HEPATIC FAILURE, UNSPECIFIED WITHOUT COMA Status: Resolved - Plan pt has significant behavioral issues. await neuro input. -: will likely need NH placement with hospice. -: cont current care in meantime * .
[2016-11-15] MEDS: traZODone HCl 50 MG TAB PO PRN (21:16)
[2016-11-16] MEDS: Dextrose 5 % And 0.9 % NaCl 1,000 ML IV SCH (05:31)
--- NOTE | 2016-11-16 09:58 | RAD ---
CHEST 1 VIEW: HISTORY: Dyspnea. Hypoxia. COMPARISON: 11/10/16. FINDINGS: Cardiac silhouette is magnified by projection and slightly enlarged. Mediastinum is midline. No co nfluent airspace consolidation or pneumothorax are apparent. A small amount of fluid is evident wit hin the minor fissure on the right. IMPRESSION: Cardiomegaly. POS: [facility]
[2016-11-16] MEDS: Cyanocobalamin (Vitamin B-12) 1,000 MCG TAB PO SCH (10:15)
[2016-11-16] MEDS: Rifaximin 550 MG TAB PO SCH (10:16)
[2016-11-16] MEDS: Spironolactone 25 MG TAB PO SCH (10:17)
[2016-11-16] MEDS: Folic Acid 1 MG TAB PO SCH (10:17)
[2016-11-16 10:24] VITALS: BP 113/73
[2016-11-16 10:53] VITALS: TEMP 97.4
[2016-11-16] MEDS ORDERED: Furosemide 40 MG/4 ML VIAL SLOW IVP SCH (12:15)
--- NOTE | 2016-11-16 13:26 | PDOC.PN ---
- Subjective Encounter Start Date: 11/16/16 Encounter Start Time: 10:20 Subjective: pt about the same. events solutions consultant input appreciated - Objective Resuscitation Status: Resuscitation Status DNR:Do Not Resuscitate Vital Signs & Weight: Vital Signs (12 hours) Temp Pulse Resp BP BP Pulse Ox 11/16/16 10:16 66 113/73 11/16/16 08:00 97.4 F L 66 20 113/73 99 Weight Weight 226 lb 3.108 oz I&O: 11/15/16 11/16/16 11/17/16 06:59 06:59 06:59 Intake Total 200 1080 Output Total 250 Balance 200 830 Result Diagrams: 11/15/16 10:35 11/15/16 10:35 Additional Labs: Accuchecks 11/16/16 11/15/16 11/15/16 04:14 17:02 13:29 POC Glucose 126 H 157 H 101 Phys Exam - Physical Examination HEENT: PERRLA diminished BS at based Cardiovascular: RRR, no significant murmur Gastrointestinal: soft, non-tender, no distention Musculoskeletal: no edema Neurological: non-focal, moves all 4 limbs Skin: no rash Dx/Plan (1) Atrial fibrillation with RVR Code(s): I48.91 - UNSPECIFIED ATRIAL FIBRILLATION Status: Acute Comment: Rate variable, resume Cardizem (2) CKD (chronic kidney disease) Code(s): N18.9 - CHRONIC KIDNEY DISEASE, UNSPECIFIED Status: Acute (3) Hyperammonemia Code(s): E72.20 - DISORDER OF UREA CYCLE METABOLISM, UNSPECIFIED Status: Acute Comment: Variable levels, chronic, Lactulose (4) Chronic atrial fibrillation Code(s): I48.2 - CHRONIC ATRIAL FIBRILLATION Status: Chronic (5) Cirrhosis of liver Code(s): K74.60 - UNSPECIFIED CIRRHOSIS OF LIVER Status: Chronic (6) Hepatic encephalopathy Code(s): K72.90 - HEPATIC FAILURE, UNSPECIFIED WITHOUT COMA Status: Chronic Comment: Acute/Chronic encephalopathy multifactorial, supportive, Lactulose 80gm IN BID (7) Hepatitis C Code(s): B19.20 - UNSPECIFIED VIRAL HEPATITIS C WITHOUT HEPATIC COMA Status: Chronic Qualifiers: (8) Hypertension Code(s): I10 - ESSENTIAL (PRIMARY) HYPERTENSION Status: Chronic Qualifiers: Comment: Stable currently (9) Macrocytic anemia Code(s): D53.9 - NUTRITIONAL ANEMIA, UNSPECIFIED Status: Chronic (10) Thrombocytopenia Code(s): D69.6 - THROMBOCYTOPENIA, UNSPECIFIED Status: Chronic (11) Hepatic encephalopathy Code(s): K72.90 - HEPATIC FAILURE, UNSPECIFIED WITHOUT COMA Status: Resolved (12) Hypoxemia Code(s): R09.02 - HYPOXEMIA Status: Acute (13) Dementia Code(s): F03.90 - UNSPECIFIED DEMENTIA WITHOUT BEHAVIORAL DISTURBANCE Status: Acute - Plan we will check CXR. check B 12 levels. agree with seroquel -: stop iv fluids. * .
== END 2016-11-16 17:42 | DRG 442 ==
LOC: ERS 19:46 → IMCU/EMU 22:30 → T4-A 11-14 18:45
PROVIDERS: ADMIT Internal Medicine; ATTEND Internal Medicine
DX: K72.00 Acute and subacute hepatic failure without coma (principal); F03.91 Unspecified dementia, unspecified severity, with behavioral disturbance; K76.6 Portal hypertension; D69.6 Thrombocytopenia, unspecified; N18.3 Chronic kidney disease, stage 3 (moderate); K74.69 Other cirrhosis of liver; K72.10 Chronic hepatic failure without coma; Z78.1 Physical restraint status; R09.02 Hypoxemia; I48.2 Chronic atrial fibrillation; B18.2 Chronic viral hepatitis C; Z91.14 Patient's other noncompliance with medication regimen; J44.9 Chronic obstructive pulmonary disease, unspecified; K21.9 Gastro-esophageal reflux disease without esophagitis; Z87.891 Personal history of nicotine dependence; Z66 Do not resuscitate; I12.9 Hypertensive chronic kidney disease with stage 1 through stage 4 chronic kidney disease, or unspecified chronic kidney disease; D53.9 Nutritional anemia, unspecified
CPT/HCPCS: 36415; 36416; 70450; 71010; 76705; 80048; 80053; 82105; 82140; 82553; 82607; 83735; 83880; 84484; 85025; 85610; 85730; 93005; 96361; 96374; 96376; A4216; G8978-GP-CN; G8979-GP-CK; J1940

== ENCOUNTER 2016-12-03 10:02 | Inpatient (IN) | payer MEDICARE, MEDICAID, OTHER ==
[2016-12-03 11:03] LABS: Hematocrit 38.2 % (42.0-52.0); Mean Platelet Volume 7.4 fL (7.4-10.4); Red Blood Cell (RBC) Count 3.78 mill/uL (4.70-6.10); White Blood Cell (WBC) Count 4.4 thou/uL (4.8-10.8)
[2016-12-03 11:13] LABS: ALT (SGPT) 51 U/L (8-55); AST (SGOT) 99 U/L (5-34); Alkaline Phosphatase 125 U/L (40-150); Anion Gap 11 mmol/L (10-20); BUN (Urea Nitrogen) 12 mg/dL (8.4-25.7); Bilirubin, Total 1.6 mg/dL (0.2-1.2); Calc. Creatinine Clearance 0 mL/min (70-130); Calcium 8.9 mg/dL (7.8-10.44); Carbon Dioxide 20 mmol/L (22-29); Chloride 110 mmol/L (98-107); Estimated GFR-MDRD 83; Globulin 5.2 g/dL (2.4-3.5); Protein, Total 7.9 g/dL (6.0-8.3)
[2016-12-03 11:19] LABS: Macrocytosis SLIGHT = 6-15 cells (100X) (0-5/hpf); Neutrophil 67 % (42-75); Reactive Lymphocytes 1 % (0-10)
[2016-12-03] MEDS ORDERED: Acetaminophen 325 MG TAB PO PRN (13:02)
[2016-12-03] MEDS ORDERED: Guaifenesin DM 100-10/5 ML UDCUP PO PRN (13:02)
[2016-12-03] MEDS ORDERED: Ondansetron HCl/PF 4 MG/2 ML Vial IVP PRN (13:02)
--- NOTE | 2016-12-03 13:07 | RAD ---
ONE VIEW CHEST: History: Altered mental status. Patient fell last night. Comparison: 11-16-16 FINDINGS: Portable single view chest. Patient is rotated to the right. Mildly enlarged cardiac silhouette. Pul monary vessels and hilum are normal. Costophrenic angles are clear. No masses. No consolidation. No pneumothorax or osseous abnormality. IMPRESSION: No acute cardiopulmonary process. POS: [facility]
--- NOTE | 2016-12-03 13:57 | HP ---
REASON FOR ADMISSION: Acute hepatic encephalopathy. HISTORY OF PRESENTING ILLNESS: The patient apparently fell from his bed last night. They tried to check on him every 30 minutes. He was found to have had recurrent falls with no obvious injuries on him. Finally, they moved him from his cell to the dayroom. As he continued to be lethargic, patient was brought to emergency room for evaluation. Mr. Dominguez has had multiple hospitalizations here for noncompliance with his lactulose. I spoke to Sergeant Curtis at the [facility] medical department. She does mention that he sometimes gets diarrhea with lactulose and stops it completely. One such episode was in the last few days. Mr. Dominguez at present is not communicating except for loud moaning noises. He is also known to be highly manipulative. PAST MEDICAL AND SURGICAL HISTORY: History of chronic cirrhosis with hepatitis C, recurrent hospitalizations for hepatic encephalopathy, chronic atrial fibrillation, hypertension, prior history of TIPS, multiple EGDs, hypertension, underlying psychiatric disorder. ALLERGIES: Allergic to PENICILLIN. PERSONAL HISTORY: Patient is a [facility] inmate. Does not abuse alcohol or drugs. No history of smoking. FAMILY HISTORY: The patient apparently has no inheritable disease per prior records. CURRENT MEDICATIONS: Patient was discharged on 11/28/2016 on aspirin 81 mg daily, vitamin B12 1000 mcg daily, cyclobenzaprine 10 mg p.o. at bedtime, Cardizem-CD 240 mg p.o. twice daily, folic acid 1 mg p.o. daily, gabapentin 300 mg p.o. daily, lactulose 30 grams p.o. 4 times daily, mirtazapine 30 mg p.o. at bedtime, multivitamin 1 tab once daily, Protonix 40 mg daily, Seroquel 25 mg twice daily, rifaximin 550 mg twice daily, scopolamine patch 1.5 mg transdermal once 72 hourly, spironolactone 50 mg daily, thiamine 100 mg daily, and trazodone 50 mg p.o. at bedtime. REVIEW OF SYSTEMS: Cannot be obtained as patient is not oriented and keeps moaning and yelling at present. PHYSICAL EXAMINATION: GENERAL: The patient is a 61-year-old male who is currently moaning and yelling. VITAL SIGNS: Blood pressure 146/110, pulse 90 per minute, respiratory rate 20 per minute, temperature 97.8 degrees Fahrenheit, saturating 99% on room air. NECK: Supple, no elevated JVD. EYES: Extraocular muscles intact. Pupils reacting to light. ORAL CAVITY: Mucous membranes are moist. No exudates or congestion. CARDIOVASCULAR SYSTEM: S1, S2 heard. Regular rhythm. RESPIRATORY SYSTEM: Air entry 1+ bilaterally. No rales or rhonchi. ABDOMEN: Soft, bowel sounds heard. No tenderness, rigidity or guarding. EXTREMITIES: There is 1+ peripheral edema, no calf tenderness. VASCULAR SYSTEM: Peripheral pulses 1+ bilateral. No ischemic ulcerations or gangrene. CENTRAL NERVOUS SYSTEM: No gross focal deficits seen. Patient is not oriented. PSYCHIATRIC SYSTEM: Cannot be assessed due to patient's current confusion. LABORATORY DATA AND X-RAY FINDINGS: White count of 4.4, hemoglobin and hematocrit 12 and 38, platelet count 120 with 67% neutrophils, MCV 101. Serum bicarbonate 20, BUN 12, creatinine 1.1, glucose 87, total bilirubin 1.6, AST 99 , ALT 51, alkaline phosphatase 125, ammonia is 132, and albumin is 2.7. Chest x -ray done by my review shows there is mild cardiomegaly; otherwise no acute infiltrate. Ammonia levels are 132. CLINICAL IMPRESSION AND PLAN: The patient will be admitted to medical floor for recurrent hepatic encephalopathy due to noncompliance with medication. He will be on lactulose 20 grams p.o. 4 times daily[address] We will also place him on Geodon 20 mg twice daily. He was recently discharged on the to [facility] and was noncompliant with his medications and has come back. I did speak to Sergeant Curtis at [facility] and I was told that patient has a hearing next Thursday. He has already pled guilty for his offence and sentencing is on that day. The current [facility] has no infirmbig pool. We will also activate [facility], who was not seen him for the last one year or so at the [facility]. [facility] will be consulted once he is more medically stable. We will continue his Cardizem-CD 240 mg twice daily along with aspirin for his chronic atrial fibrillation. He currently seems to be in sinus rhythm. He will also be on Pepcid 20 mg twice daily. We will continue to closely monitor him for any hemodynamic compromise. SHEN[facility]
[2016-12-03 14:09] LABS: Bilirubin Negative (Negative); Blood, Urine Negative (Negative); Glucose, Urine (Dipstick) Negative (Negative); Ketone, Urine Negative (Negative); Nitrite Negative (Negative); Protein, Urine (Dipstick) Negative (Neg-Trace); Urobilinogen 0.2 mg/dL (0.2-1.0)
[2016-12-03 16:22] VITALS: BMI 33.3
[2016-12-03] MEDS ORDERED: FLU VACC QS2017-18 36 mo. & older 0.5 ML SYRINGE IM ONE (21:00)
[2016-12-03] MEDS: Famotidine 20 MG TAB PO SCH (22:02)
[2016-12-04] MEDS ORDERED: Haloperidol Lactate 5 MG/ML VIAL IM SCH (04:15)
[2016-12-04 06:37] LABS: ALT (SGPT) 47 U/L (8-55); AST (SGOT) 93 U/L (5-34); Alkaline Phosphatase 114 U/L (40-150); Anion Gap 11 mmol/L (10-20); BUN (Urea Nitrogen) 10 mg/dL (8.4-25.7); Bilirubin, Total 1.7 mg/dL (0.2-1.2); Calc. Creatinine Clearance 108 mL/min (70-130); Calcium 8.6 mg/dL (7.8-10.44); Carbon Dioxide 20 mmol/L (22-29); Chloride 110 mmol/L (98-107); Estimated GFR-MDRD 78; Globulin 4.9 g/dL (2.4-3.5); Protein, Total 7.3 g/dL (6.0-8.3)
[2016-12-04 06:51] LABS: Hematocrit 37.1 % (42.0-52.0); Mean Platelet Volume 7.8 fL (7.4-10.4); Red Blood Cell (RBC) Count 3.63 mill/uL (4.70-6.10)
[2016-12-04 07:47] LABS: Neutrophil 58 % (42-75)
--- NOTE | 2016-12-04 12:13 | PDOC.PN ---
- Subjective Encounter Start Date: 12/04/16 Encounter Start Time: 10:00 -: old records requested/rev Patient seen and examined. No overnight events, pt is throwing food in his room , now sleepy - Objective MAR Reviewed: Yes Vital Signs & Weight: Vital Signs (12 hours) Temp Pulse Resp BP Pulse Ox 12/04/16 08:00 97.7 F 76 22 H 100 12/04/16 07:19 97.7 F 76 22 H 135/94 H 100 12/04/16 06:00 98.0 F 75 18 141/66 H 98 I&O: 12/03/16 12/04/16 12/05/16 06:59 06:59 06:59 Intake Total 250 Balance 250 Result Diagrams: 12/04/16 05:43 12/04/16 05:43 Additional Labs: Accuchecks 12/04/16 12/03/16 12/03/16 04:52 20:23 16:55 POC Glucose 81 103 128 H Phys Exam - Physical Examination Constitutional: NAD sleepy HEENT: PERRLA, sclera anicteric Neck: no JVD, supple Respiratory: no wheezing, no rales, no rhonchi Cardiovascular: RRR, no significant murmur, no rub Gastrointestinal: soft, no distention, positive bowel sounds Musculoskeletal: no edema, pulses present Lymphatic: no nodes Skin: no rash, normal turgor Dx/Plan (1) Hepatic encephalopathy Code(s): K72.90 - HEPATIC FAILURE, UNSPECIFIED WITHOUT COMA Status: Acute (2) CKD (chronic kidney disease) stage 3, GFR 30-59 ml/min Code(s): N18.3 - CHRONIC KIDNEY DISEASE, STAGE 3 (MODERATE) Status: Chronic Comment: Appears baseline CKD (3) COPD (chronic obstructive pulmonary disease) Status: Chronic Qualifiers: (4) Chronic atrial fibrillation Code(s): I48.2 - CHRONIC ATRIAL FIBRILLATION Status: Chronic (5) Cirrhosis of liver Code(s): K74.60 - UNSPECIFIED CIRRHOSIS OF LIVER Status: Chronic (6) GERD (gastroesophageal reflux disease) Code(s): K21.9 - GASTRO-ESOPHAGEAL REFLUX DISEASE WITHOUT ESOPHAGITIS Status: Chronic Qualifiers: (7) Hepatitis C Code(s): B19.20 - UNSPECIFIED VIRAL HEPATITIS C WITHOUT HEPATIC COMA Status: Chronic Qualifiers: (8) Hypertension Code(s): I10 - ESSENTIAL (PRIMARY) HYPERTENSION Status: Chronic Qualifiers: Comment: Stable currently (9) Macrocytic anemia Code(s): D53.9 - NUTRITIONAL ANEMIA, UNSPECIFIED Status: Chronic (10) Medical non-compliance Code(s): Z91.19 - PATIENT'S NONCOMPLIANCE W OTH MEDICAL TREATMENT AND REGIMEN Status: Chronic (11) Obesity (BMI 30-39.9) Code(s): E66.9 - OBESITY, UNSPECIFIED Status: Chronic (12) Polysubstance abuse Code(s): F19.10 - OTHER PSYCHOACTIVE SUBSTANCE ABUSE, UNCOMPLICATED Status: Chronic (13) Thrombocytopenia Code(s): D69.6 - THROMBOCYTOPENIA, UNSPECIFIED Status: Chronic - Plan cont current plan of care * continue lactulose * add rifaximin * repeat ammonia level tomorrow * medication reviewed as below * symptomatic treatment * home medication reconciled. Review of Systems - Review of Systems Other: unable to review as pt is not co-operative and now sleepy - Medications/Allergies Allergies/Adverse Reactions: Allergies Allergy/AdvReac Type Severity Reaction Status Date / Time Penicillins Allergy Verified 08/09/16 00:17 Medications: Current Medications Acetaminophen (Tylenol) 650 mg PO Q4H PRN PRN Reason: Headache/Fever or Pain Aspirin (Ecotrin) 81 mg PO DAILY [facility] Diltiazem HCl (Cardizem Cd) 240 mg PO BID [facility] Last Admin: 12/03/16 22:03 Dose: 240 mg Enoxaparin Sodium (Lovenox) 40 mg SC 0900 [facility] Famotidine (Pepcid) 20 mg PO BID [facility] Last Admin: 12/03/16 22:02 Dose: 20 mg Guaifenesin/Dextromethorphan (Robitussin Dm) 15 ml PO Q4H PRN PRN Reason: Cough Lactulose (Lactulose) 20 gm PO QID [facility] Last Admin: 12/03/16 22:03 Dose: 20 gm Ondansetron HCl (Zofran) 4 mg IVP Q6H PRN PRN Reason: Nausea/Vomiting Quetiapine Fumarate (Seroquel) 25 mg PO BID [facility] Last Admin: 12/03/16 22:03 Dose: 25 mg Spironolactone (Aldactone) 50 mg PO DAILY [facility] Ziprasidone (Geodon) 20 mg PO BID [facility] Last Admin: 10/25/17 22:05 Dose: 20 mg
[2016-12-04] MEDS: Spironolactone 25 MG TAB PO SCH (13:24)
[2016-12-04] MEDS: Aspirin 81 mg Enteric Coated Tablet PO SCH (13:25)
[2016-12-04] MEDS: Enoxaparin Sodium 40 MG/0.4 ML SYRINGE SC SCH (13:26)
[2016-12-04] MEDS: Famotidine 20 MG TAB PO SCH (15:41)
[2016-12-04] MEDS: Rifaximin 550 MG TAB PO SCH (21:55)
[2016-12-04] MEDS: Mirtazapine 30 MG TAB PO SCH (21:55)
[2016-12-05] MEDS: Enoxaparin Sodium 40 MG/0.4 ML SYRINGE SC SCH (08:40)
[2016-12-05] MEDS: Spironolactone 25 MG TAB PO SCH (08:43)
[2016-12-05] MEDS: Folic Acid 1 MG TAB PO SCH (08:43)
[2016-12-05] MEDS: Cyanocobalamin (Vitamin B-12) 1,000 MCG TAB PO SCH (08:43)
[2016-12-05] MEDS: Rifaximin 550 MG TAB PO SCH ×2 (08:43→19:57)
[2016-12-05] MEDS: Aspirin 81 mg Enteric Coated Tablet PO SCH (08:43)
--- NOTE | 2016-12-05 11:17 | PDOC.PN ---
- Subjective Encounter Start Date: 12/05/16 Encounter Start Time: 09:00 Patient seen and examined. No new complaints. No overnight events - Objective MAR Reviewed: Yes Vital Signs & Weight: Vital Signs (12 hours) Temp Pulse Resp BP BP Pulse Ox 12/05/16 08:43 78 132/70 12/05/16 07:00 98.1 F 78 18 132/70 98 I&O: 12/04/16 12/05/16 12/06/16 06:59 06:59 06:59 Intake Total 250 240 Output Total 150 Balance 250 90 Result Diagrams: 12/04/16 05:43 12/04/16 05:43 Additional Labs: Accuchecks 12/05/16 12/04/16 12/04/16 04:18 21:54 16:38 POC Glucose 95 81 148 H 12/04/16 12:05 POC Glucose 80 Phys Exam - Physical Examination Constitutional: NAD HEENT: PERRLA, moist MMs, sclera anicteric Neck: no JVD, supple Respiratory: no wheezing, no rales, no rhonchi Cardiovascular: RRR, no significant murmur, no rub Gastrointestinal: soft, non-tender, no distention, positive bowel sounds Musculoskeletal: no edema, pulses present Neurological: non-focal, normal sensation Lymphatic: no nodes Psychiatric: normal affect Skin: no rash, normal turgor Dx/Plan (1) Hepatic encephalopathy Code(s): K72.90 - HEPATIC FAILURE, UNSPECIFIED WITHOUT COMA Status: Acute (2) CKD (chronic kidney disease) stage 3, GFR 30-59 ml/min Code(s): N18.3 - CHRONIC KIDNEY DISEASE, STAGE 3 (MODERATE) Status: Chronic Comment: Appears baseline CKD (3) COPD (chronic obstructive pulmonary disease) Status: Chronic Qualifiers: (4) Chronic atrial fibrillation Code(s): I48.2 - CHRONIC ATRIAL FIBRILLATION Status: Chronic (5) Cirrhosis of liver Code(s): K74.60 - UNSPECIFIED CIRRHOSIS OF LIVER Status: Chronic (6) GERD (gastroesophageal reflux disease) Code(s): K21.9 - GASTRO-ESOPHAGEAL REFLUX DISEASE WITHOUT ESOPHAGITIS Status: Chronic Qualifiers: (7) Hepatitis C Code(s): B19.20 - UNSPECIFIED VIRAL HEPATITIS C WITHOUT HEPATIC COMA Status: Chronic Qualifiers: (8) Hypertension Code(s): I10 - ESSENTIAL (PRIMARY) HYPERTENSION Status: Chronic Qualifiers: Comment: Stable currently (9) Macrocytic anemia Code(s): D53.9 - NUTRITIONAL ANEMIA, UNSPECIFIED Status: Chronic (10) Medical non-compliance Code(s): Z91.19 - PATIENT'S NONCOMPLIANCE W OTH MEDICAL TREATMENT AND REGIMEN Status: Chronic (11) Obesity (BMI 30-39.9) Code(s): E66.9 - OBESITY, UNSPECIFIED Status: Chronic (12) Polysubstance abuse Code(s): F19.10 - OTHER PSYCHOACTIVE SUBSTANCE ABUSE, UNCOMPLICATED Status: Chronic (13) Thrombocytopenia Code(s): D69.6 - THROMBOCYTOPENIA, UNSPECIFIED Status: Chronic - Plan cont current plan of care, continue antibiotics * will increase lactulose 30 gm q 3 hourly * repeat ammonia level tomorrow. * medication reviewed as below * symptomatic treatment Review of Systems - Review of Systems ENT: negative: Ear Pain, Ear Discharge, Nose Pain, Nose Discharge, Nose Congestion, Mouth Pain, Mouth Swelling, Throat Pain, Throat Swelling, Other Respiratory: negative: Cough, Dry, Shortness of Breath, Hemoptysis, SOB with Excertion, Pleuritic Pain, Sputum, Wheezing Cardiovascular: negative: Chest Pain, Palpitations, Orthopnea, Paroxysmal Noc. Dyspnea, Edema, Light Headedness, Other Gastrointestinal: negative: Nausea, Vomiting, Abdominal Pain, Diarrhea, Constipation, Melena, Hematochezia, Other Genitourinary: negative: Dysuria, Frequency, Incontinence, Hematuria, Retention , Other Musculoskeletal: negative: Neck Pain, Shoulder Pain, Arm Pain, Back Pain, Hand Pain, Leg Pain, Foot Pain, Other - Medications/Allergies Allergies/Adverse Reactions: Allergies Allergy/AdvReac Type Severity Reaction Status Date / Time Penicillins Allergy Verified 08/09/16 00:17 Medications: Current Medications Acetaminophen (Tylenol) 650 mg PO Q4H PRN PRN Reason: Headache/Fever or Pain Aspirin (Ecotrin) 81 mg PO DAILY [facility] Last Admin: 12/05/16 08:43 Dose: 81 mg Cyanocobalamin (Vitamin B-12) 1,000 mcg PO DAILY [facility] Last Admin: 12/05/16 08:43 Dose: 1,000 mcg Diltiazem HCl (Cardizem Cd) 240 mg PO BID [facility] Last Admin: 12/05/16 08:43 Dose: 240 mg Enoxaparin Sodium (Lovenox) 40 mg SC 0900 [facility] Last Admin: 12/05/16 08:40 Dose: 40 mg Folic Acid (Folvite) 1 mg PO DAILY [facility] Last Admin: 12/05/16 08:43 Dose: 1 mg Guaifenesin/Dextromethorphan (Robitussin Dm) 15 ml PO Q4H PRN PRN Reason: Cough Lactulose (Lactulose) 30 gm PO Q3H [facility] Last Admin: 12/05/16 08:40 Dose: 30 gm Mirtazapine (Remeron) 30 mg PO HS [facility] Last Admin: 12/04/16 21:55 Dose: 30 mg Ondansetron HCl (Zofran) 4 mg IVP Q6H PRN PRN Reason: Nausea/Vomiting Pantoprazole Sodium (Protonix) 40 mg PO DAILY [facility] Last Admin: 12/05/16 08:43 Dose: 40 mg Quetiapine Fumarate (Seroquel) 25 mg PO BID [facility] Last Admin: 12/05/16 08:43 Dose: 25 mg Rifaximin (Xifaxan) 550 mg PO BID [facility] Last Admin: 12/05/16 08:43 Dose: 550 mg Sodium Chloride (Flush - Normal Saline) 10 ml IVF Q12HR [facility] Last Admin: 12/05/16 08:44 Dose: 10 ml Sodium Chloride (Flush - Normal Saline) 10 ml IVF PRN PRN PRN Reason: Saline Flush Spironolactone (Aldactone) 50 mg PO DAILY [facility] Last Admin: 12/05/16 08:43 Dose: 50 mg Thiamine HCl (Thiamine) 100 mg PO DAILY [facility] Last Admin: 12/05/16 08:43 Dose: 100 mg Ziprasidone (Geodon) 20 mg PO BID [facility] Last Admin: 12/05/16 08:43 Dose: 20 mg
[2016-12-05] MEDS ORDERED: Dextrose 50% Abboject 50 ML SYRINGE IVP PRN (17:52)
[2016-12-05] MEDS ORDERED: Dextrose 5% in Water 1,000 ML IV PRN (17:52)
[2016-12-05] MEDS: HumaLOG 300 UNITS/3 ML VIAL SC PRN (18:06)
[2016-12-05] MEDS: Mirtazapine 30 MG TAB PO SCH (19:56)
[2016-12-06] MEDS: HumaLOG 300 UNITS/3 ML VIAL SC PRN (06:21)
[2016-12-06] MEDS: Spironolactone 25 MG TAB PO SCH (09:05)
[2016-12-06] MEDS: Aspirin 81 mg Enteric Coated Tablet PO SCH (09:05)
[2016-12-06] MEDS: Folic Acid 1 MG TAB PO SCH (09:05)
[2016-12-06] MEDS: Cyanocobalamin (Vitamin B-12) 1,000 MCG TAB PO SCH (09:05)
[2016-12-06] MEDS: Rifaximin 550 MG TAB PO SCH (09:05)
[2016-12-06] MEDS: Enoxaparin Sodium 40 MG/0.4 ML SYRINGE SC SCH (09:06)
--- NOTE | 2016-12-06 10:17 | PDOC.PN ---
- Subjective Encounter Start Date: 12/06/16 Encounter Start Time: 09:20 Patient seen and examined. No new complaints. No overnight events - Objective MAR Reviewed: Yes Vital Signs & Weight: Vital Signs (12 hours) Temp Pulse Resp BP BP Pulse Ox 12/06/16 09:06 74 154/84 H 12/06/16 08:00 97.9 F 74 18 100 12/06/16 07:46 97.9 F 74 20 154/84 H I&O: 12/05/16 12/06/16 12/07/16 06:59 06:59 06:59 Intake Total 240 720 240 Output Total 150 Balance 90 720 240 Result Diagrams: 12/04/16 05:43 12/04/16 05:43 Additional Labs: Accuchecks 12/06/16 12/05/16 12/05/16 06:15 19:42 16:37 POC Glucose 222 H 110 464 H 12/05/16 12:01 POC Glucose 181 H Phys Exam - Physical Examination Constitutional: NAD HEENT: PERRLA, moist MMs, sclera anicteric Neck: no JVD, supple Respiratory: no wheezing, no rales, no rhonchi Cardiovascular: RRR, no significant murmur, no rub Gastrointestinal: soft, non-tender, no distention, positive bowel sounds Musculoskeletal: no edema, pulses present Neurological: non-focal, normal sensation Psychiatric: normal affect, A&O x 3 Skin: no rash, normal turgor Dx/Plan (1) Hepatic encephalopathy Code(s): K72.90 - HEPATIC FAILURE, UNSPECIFIED WITHOUT COMA Status: Acute (2) CKD (chronic kidney disease) stage 3, GFR 30-59 ml/min Code(s): N18.3 - CHRONIC KIDNEY DISEASE, STAGE 3 (MODERATE) Status: Chronic Comment: Appears baseline CKD (3) COPD (chronic obstructive pulmonary disease) Status: Chronic Qualifiers: (4) Chronic atrial fibrillation Code(s): I48.2 - CHRONIC ATRIAL FIBRILLATION Status: Chronic (5) Cirrhosis of liver Code(s): K74.60 - UNSPECIFIED CIRRHOSIS OF LIVER Status: Chronic (6) GERD (gastroesophageal reflux disease) Code(s): K21.9 - GASTRO-ESOPHAGEAL REFLUX DISEASE WITHOUT ESOPHAGITIS Status: Chronic Qualifiers: (7) Hepatitis C Code(s): B19.20 - UNSPECIFIED VIRAL HEPATITIS C WITHOUT HEPATIC COMA Status: Chronic Qualifiers: (8) Hypertension Code(s): I10 - ESSENTIAL (PRIMARY) HYPERTENSION Status: Chronic Qualifiers: Comment: Stable currently (9) Macrocytic anemia Code(s): D53.9 - NUTRITIONAL ANEMIA, UNSPECIFIED Status: Chronic (10) Medical non-compliance Code(s): Z91.19 - PATIENT'S NONCOMPLIANCE W OTH MEDICAL TREATMENT AND REGIMEN Status: Chronic (11) Obesity (BMI 30-39.9) Code(s): E66.9 - OBESITY, UNSPECIFIED Status: Chronic (12) Polysubstance abuse Code(s): F19.10 - OTHER PSYCHOACTIVE SUBSTANCE ABUSE, UNCOMPLICATED Status: Chronic (13) Thrombocytopenia Code(s): D69.6 - THROMBOCYTOPENIA, UNSPECIFIED Status: Chronic - Plan cont current plan of care, continue antibiotics * medication reviewed as below * symptomatic treatment * ammonia is normal * discharge to [facility]. Review of Systems - Review of Systems ENT: negative: Ear Pain, Ear Discharge, Nose Pain, Nose Discharge, Nose Congestion, Mouth Pain, Mouth Swelling, Throat Pain, Throat Swelling, Other Respiratory: negative: Cough, Dry, Shortness of Breath, Hemoptysis, SOB with Excertion, Pleuritic Pain, Sputum, Wheezing Cardiovascular: negative: Chest Pain, Palpitations, Orthopnea, Paroxysmal Noc. Dyspnea, Edema, Light Headedness, Other Gastrointestinal: negative: Nausea, Vomiting, Abdominal Pain, Diarrhea, Constipation, Melena, Hematochezia, Other Genitourinary: negative: Dysuria, Frequency, Incontinence, Hematuria, Retention , Other Musculoskeletal: negative: Neck Pain, Shoulder Pain, Arm Pain, Back Pain, Hand Pain, Leg Pain, Foot Pain, Other - Medications/Allergies Allergies/Adverse Reactions: Allergies Allergy/AdvReac Type Severity Reaction Status Date / Time Penicillins Allergy Verified 08/09/16 00:17 Medications: Current Medications Acetaminophen (Tylenol) 650 mg PO Q4H PRN PRN Reason: Headache/Fever or Pain Aspirin (Ecotrin) 81 mg PO DAILY [facility] Last Admin: 12/06/16 09:05 Dose: 81 mg Cyanocobalamin (Vitamin B-12) 1,000 mcg PO DAILY [facility] Last Admin: 12/06/16 09:05 Dose: 1,000 mcg Dextrose/Water (Dextrose 50%) 25 gm IVP PRN PRN PRN Reason: HYPOGLYCEMIA PROTOCOL Diltiazem HCl (Cardizem Cd) 240 mg PO BID [facility] Last Admin: 12/06/16 09:06 Dose: 240 mg Enoxaparin Sodium (Lovenox) 40 mg SC 0900 [facility] Last Admin: 12/06/16 09:06 Dose: 40 mg Folic Acid (Folvite) 1 mg PO DAILY [facility] Last Admin: 12/06/16 09:05 Dose: 1 mg Glucagon (Glucagon) 1 mg IM PRN PRN PRN Reason: HYPOGLYCEMIA PROTOCOL Guaifenesin/Dextromethorphan (Robitussin Dm) 15 ml PO Q4H PRN PRN Reason: Cough Dextrose/Water (D5w) 1,000 mls @ 0 mls/hr IV INF PRN; As Directed PRN Reason: HYPOGLYCEMIA PROTOCOL Insulin Human Lispro (Humalog) 0 units SC .MODERATE SLIDING SC PRN; Protocol PRN Reason: MODERATE SLIDING SCALE Last Admin: 12/06/16 06:21 Dose: 4 unit Lactulose (Lactulose) 30 gm PO Q3H [facility] Last Admin: 12/06/16 09:04 Dose: 30 gm Mirtazapine (Remeron) 30 mg PO HS [facility] Last Admin: 12/05/16 19:56 Dose: 30 mg Ondansetron HCl (Zofran) 4 mg IVP Q6H PRN PRN Reason: Nausea/Vomiting Pantoprazole Sodium (Protonix) 40 mg PO DAILY [facility] Last Admin: 12/06/16 09:05 Dose: 40 mg Quetiapine Fumarate (Seroquel) 25 mg PO BID [facility] Last Admin: 12/06/16 09:05 Dose: 25 mg Rifaximin (Xifaxan) 550 mg PO BID [facility] Last Admin: 12/06/16 09:05 Dose: 550 mg Sodium Chloride (Flush - Normal Saline) 10 ml IVF Q12HR [facility] Last Admin: 12/06/16 09:06 Dose: 10 ml Sodium Chloride (Flush - Normal Saline) 10 ml IVF PRN PRN PRN Reason: Saline Flush Spironolactone (Aldactone) 50 mg PO DAILY [facility] Last Admin: 12/06/16 09:05 Dose: 50 mg Thiamine HCl (Thiamine) 100 mg PO DAILY [facility] Last Admin: 12/06/16 09:05 Dose: 100 mg Ziprasidone (Geodon) 20 mg PO BID [facility] Last Admin: 12/06/16 09:07 Dose: 20 mg
--- NOTE | 2016-12-06 10:58 | DIS ---
DATE OF ADMISSION: 12/03/2016 DATE OF DISCHARGE: 12/06/2016 PRIMARY CARE PHYSICIAN: [facility] call admission. DISCHARGE DISPOSITION: Snf. PRIMARY DISCHARGE DIAGNOSIS: Hepatic encephalopathy. SECONDARY DISCHARGE DIAGNOSES: Chronic atrial fibrillation, cirrhosis of liver, chronic kidney dise ase stage 3, chronic obstructive pulmonary disease, gastroesophageal reflux disease, diabetes type 2 diet controlled, hepatitis C, hypertension, macrocytic anemia, medical noncompliance, obesity with body mass index 33, history of polysubstance abuse, thrombocytopenia. PRIMARY PROCEDURE/OPERATION: None. RADIOLOGICAL INVESTIGATION: Chest x-ray was normal. SIGNIFICANT LABORATORY DATA: WBC 4.0, hemoglobin 12.2, platelets 137. Sodium 137, potassium 3.8, B UN 10, creatinine 1.16, glucose 80, and calcium 8.6. LFT: AST 93, ALT 47, alkaline phosphatase 114, albumin 2.4. Ammonia level on discharge 63. Urinal ysis normal. DISCHARGE MEDICATIONS: We are increasing lactulose 60 gram p.o. t.i.d., rifaximin 550 mg p.o. b.i.d . for 7 days, aspirin 81 mg p.o. daily, vitamin B12 1000 mcg p.o. daily, Cardizem-CD 240 mg p.o. b.i .d., folic acid 1 mg p.o. daily, Remeron 30 mg p.o. at bedtime, Protonix 40 mg p.o. daily, Aldactone 50 mg p.o. daily, and thiamine 100 mg p.o. daily. CONTRAINDICATIONS: None. CODE STATUS: FULL CODE. 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 ALLERGIES: PENICILLIN. DISCHARGE PLAN: Post hospital, patient is discharged back to skilled nursing. HOSPITAL COURSE: A 61-year-old male who has multiple admissions in our hospital for hepatic encepha lopathy. Currently he is in [facility] and over there, patient appeared confused, lethargic, and t hat is why he was brought to emergency room. He was admitted by Dr. Martinez, please see his H\T \P for further details. Patient had elevated ammonia. The patient was suffering from hepatic encep halopathy and that is why we admitted him to medical floor. We treated him with lactulose as well a s rifaximin while in hospital. During this admission, we increased dose of lactulose to as above. Rest of medication was continued while in hospital as well as on discharge. This patient has court hearing on coming Thursday. At this point, patient is medically stable. The p atient is well oriented and up to his baseline, but this patient is very high risk for recurrent adm ission given his continuous noncompliance with diet as well as medication. The patient is seen and examined at bedside today. Please see my progress note from today for furth er details.
[2016-12-06 11:56] VITALS: BP 147/93; TEMP 97.3
== END 2016-12-06 12:00 | DRG 443 ==
LOC: ERS 10:02 → T4-B 15:25
PROVIDERS: ADMIT Internal Medicine; ATTEND Internal Medicine
DX: K72.00 Acute and subacute hepatic failure without coma (principal); E11.22 Type 2 diabetes mellitus with diabetic chronic kidney disease; K74.60 Unspecified cirrhosis of liver; N18.3 Chronic kidney disease, stage 3 (moderate); D69.6 Thrombocytopenia, unspecified; I48.2 Chronic atrial fibrillation; W06.XXXA Fall from bed, initial encounter; Y92.143 Cell of prison as the place of occurrence of the external cause; Z91.14 Patient's other noncompliance with medication regimen; B18.2 Chronic viral hepatitis C; Z88.0 Allergy status to penicillin; Z79.82 Long term (current) use of aspirin; I12.9 Hypertensive chronic kidney disease with stage 1 through stage 4 chronic kidney disease, or unspecified chronic kidney disease; J44.9 Chronic obstructive pulmonary disease, unspecified; K21.9 Gastro-esophageal reflux disease without esophagitis; D63.1 Anemia in chronic kidney disease; E66.9 Obesity, unspecified; Z68.33 Body mass index [BMI] 33.0-33.9, adult; F19.11 Other psychoactive substance abuse, in remission
CPT/HCPCS: 36415; 36416; 71010; 80053; 81003; 82140; 85007; 85025; 85027; A4216; J1630; J1650

== ENCOUNTER 2016-12-09 00:51 | Observation (INO) | payer MEDICARE, MEDICAID ==
[2016-12-09 01:53] LABS: #Eosinphils 0.2 thou/uL (0.0-0.7); #Lymphocytes 0.7 thou/uL (1.20-3.40); #Monocytes 0.4 thou/uL (0.11-0.59); #Neutrophils 2.6 thou/uL (1.40-6.50); %Basophils 0.4 % (0.0-1.0); %Eosinophils 4.1 % (0.0-10.0); %Lymphocytes 18.5 % (21.0-51.0); %Monocytes 10.6 % (0.0-10.0); Hematocrit 36.3 % (42.0-52.0); Red Blood Cell (RBC) Count 3.48 mill/uL (4.70-6.10); White Blood Cell (WBC) Count 3.9 thou/uL (4.8-10.8)
[2016-12-09 02:04] LABS: Anion Gap 13 mmol/L (-14-95); T. Carbon Dioxide 24.3 mmol/L (1.0-85.0); pH (Venous) 7.374 (7.35-7.45); vO2 Saturation-calc 98.4 % (0.0-100.0)
[2016-12-09 02:10] LABS: ALT (SGPT) 48 U/L (8-55); AST (SGOT) 89 U/L (5-34); Alkaline Phosphatase 126 U/L (40-150); Anion Gap 15 mmol/L (10-20); BUN (Urea Nitrogen) 13 mg/dL (8.4-25.7); Bilirubin, Total 1.9 mg/dL (0.2-1.2); CK (CPK) 258 U/L (30-200); Calc. Creatinine Clearance 0 mL/min (70-130); Calcium 9.2 mg/dL (7.8-10.44); Carbon Dioxide 19 mmol/L (22-29); Chloride 106 mmol/L (98-107); Estimated GFR-MDRD 68; Globulin 5.2 g/dL (2.4-3.5); Protein, Total 8.1 g/dL (6.0-8.3)
[2016-12-09 02:11] LABS: Bilirubin Negative (Negative); Blood, Urine Trace (Negative); Glucose, Urine (Dipstick) Negative (Negative); Ketone, Urine Negative (Negative); Nitrite Positive (Negative); Protein, Urine (Dipstick) Negative (Neg-Trace)
[2016-12-09 02:11] LABS: Acetaminophen Less than 6.0 mcg/mL (10.0-30.0); Salicylate Less than 8.0 mg/dL (15.0-30.0)
[2016-12-09 02:14] LABS: Bacteria/HPF 4+ HPF (None Seen); Squamous Epithelial 0-3 HPF (0-3)
[2016-12-09 02:14] LABS: Troponin I Less than 0.010 ng/mL (< 0.028)
[2016-12-09 02:19] LABS: Hyaline Casts/LPF NONE SEEN LPF (0-3 Hyaline)
[2016-12-09 02:20] LABS: Amphetamine Not Detected (NotDetected); Methadone Not Detected (NotDetected); Methamphetamine Not Detected (NotDetected)
[2016-12-09] MEDS ORDERED: Piperacillin/Tazobactam 4.5 GM VIAL ONE (02:36)
[2016-12-09 05:03] LABS: Troponin I 0.012 ng/mL (< 0.028)
[2016-12-09] MEDS ORDERED: Sodium Chloride 0.9% 1,000 ML IV SCH (05:10)
[2016-12-09] MEDS ORDERED: Ondansetron ODT 4 MG TAB SL PRN (05:10)
[2016-12-09] MEDS ORDERED: Ondansetron HCl/PF 4 MG/2 ML Vial IVP PRN (05:10)
[2016-12-09 05:13] VITALS: BMI 32.3
[2016-12-09] MEDS ORDERED: Sodium Chloride 0.65% Nasal 44 ML BOT EA NARE PRN (06:52)
[2016-12-09] MEDS ORDERED: Eucerin (Mineral Oil/Petrolatum,White) 30 gm Jar TOP PRN (06:52)
[2016-12-09] MEDS ORDERED: hydrALAZINE 20 MG/ML VIAL SLOW IVP PRN (06:52)
[2016-12-09] MEDS ORDERED: Metoclopramide HCl 10 MG/2 ML VIAL IVP PRN (06:52)
[2016-12-09] MEDS ORDERED: Artificial Tears 18 DROP/0.9 ML EA EYE PRN (06:52)
[2016-12-09] MEDS ORDERED: Loratadine 10 MG TAB PO PRN (06:52)
[2016-12-09] MEDS ORDERED: Mag-Al 1200 mg/1200 mg/30 ML UDCUP PO PRN (06:52)
[2016-12-09] MEDS ORDERED: Milk Of Magnesia 30 ML UDCUP PO PRN (06:52)
[2016-12-09] MEDS ORDERED: Loperamide HCl 2 MG CAP PO PRN (06:52)
[2016-12-09] MEDS ORDERED: Diabetic Tussin 200 MG/10 ML UDCUP PO PRN (06:52)
[2016-12-09] MEDS ORDERED: Acetaminophen 325 MG TAB PO PRN (06:52)
[2016-12-09] MEDS: Cyanocobalamin (Vitamin B-12) 1,000 MCG TAB PO SCH (08:16)
[2016-12-09] MEDS: Aspirin 81 mg Enteric Coated Tablet PO SCH (08:16)
[2016-12-09] MEDS: Rifaximin 550 MG TAB PO SCH ×2 (08:16→20:16)
[2016-12-09] MEDS: Folic Acid 1 MG TAB PO SCH (08:16)
[2016-12-09] MEDS: Spironolactone 25 MG TAB PO SCH (08:16)
[2016-12-09 08:30] LABS: Troponin I Less than 0.010 ng/mL (< 0.028)
--- NOTE | 2016-12-09 08:32 | CT ---
PRELIMINARY REPORT/[facility]/EMERGENCY AFTER HOURS PROCEDURE: EXAM: CT Head Without Intravenous Contrast EXAM DATE/TIME: 12/09/2016 1:52 AM CLINICAL HISTORY: 61 years old, male; Signs and symptoms; Altered mental status/memory loss; Confusion or disorientati on; Patient HX: AMS TECHNIQUE: Axial computed tomography images of the head/brain without intravenous contrast. COMPARISON: No relevant prior studies available. FINDINGS: Brain: No evidence of acute intracranial hemorrhage, extraxial fluid or midline shift. No evidence o f acute large vessel infarction. Ventricles: Unremarkable. No ventriculomegaly. Bones/joints: Unremarkable. No acute fracture. Soft tissues: Unremarkable. Sinuses: Unremarkable as visualized. No acute sinusitis. Mastoid air cells: Unremarkable as visualized. No mastoid effusion. IMPRESSION: 1. No evidence of acute intracranial hemorrhage, extraxial fluid or midline shift. 2. No evidence of acute large vessel infarction. Thank you for allowing us to participate in the care of your patient. Dictated and Authenticated by: Christa Leslie MD 12/09/2016 2:13 AM Central Time ([place] \T\ [place]) FINAL REPORT EMERGENCY AFTER HOURS CT HEAD WITHOUT IV CONTRAST: Date: 12/09/16 HISTORY: Altered mental status. COMPARISON: 11/10/16. IMPRESSION: 1. No acute intracranial abnormalities demonstrated. 2. Mild chronic small vessel ischemic changes and cerebral volume loss which have not progressed fr om prior exam. Findings are in agreement with the preliminary report by Fl[facility]. POS: LUIS ENRIQUE
[2016-12-09] MEDS ORDERED: FLU VACC QS2017-18 36 mo. & older 0.5 ML SYRINGE IM ONE (09:00)
--- NOTE | 2016-12-09 09:34 | RAD ---
PORTABLE UPRIGHT CHEST ONE VIEW: History: 61-year-old male with altered mental status. Comparison: 12-03-16 FINDINGS: Minimal cardiomegaly with some mild vascular congestion, stable. No confluent pneumonia, overt edema , or pleural effusion. IMPRESSION: Stable borderline cardiomegaly and vascular congestion. No acute process. POS: [facility]
[2016-12-09] MEDS ORDERED: Piperacillin/Tazobactam 3.375 GM, Admixture Fee 1 EACH in Sodium Chloride 0.9% 100 ML IVPB SCH (11:00)
[2016-12-09] MEDS: Meropenem 1 GM, Admixture Fee 1 EACH in Sterile Water 20 ML SLOW IVP SCH ×2 (11:44→18:34)
--- NOTE | 2016-12-09 13:08 | HP ---
PRIMARY CARE PHYSICIAN: [facility] call admission. REASON FOR ADMISSION: Urinary tract infection. HISTORY OF PRESENT ILLNESS: A 61-year-old -[place] male who has underlying history of cirrh osis of liver secondary to chronic hepatitis C and alcohol abuse who is currently in [facility]. Hilario dailey was recently admitted in our hospital for acute hepatic encephalopathy on 12/03/2016 and he was di scharged to half-way on 12/06/2016. After discharge, he was doing relatively well, but again this morni ng, patient appeared altered and he was acting weird and that is why he was brought to emergency [facility] for evaluation. At this time in the emergency room, his ammonia level was normal. His all blood tests including CBC and BMP was unremarkable. Patient's urinalysis was suggestive of urinary tract infection. Patient is a very poor historian, he is not able to provide any history at this point. As per staff from [facility], they reports that they do not have equipment to handle him over there and he retains his symptoms multiple times over there. He wants to eat regular food and whenever hilario dailey does not get his own food, then he gets agitated and gets upset over there at half-way and sometimes r equires to come to the emergency room for evaluation. REVIEW OF SYSTEMS: All review of systems tried to review with the patient, but not reliable because of his level of alertness. Please see my HPI for further details. The following complete review of systems was negative, unless otherwise mentioned in the HPI or belo w: Constitutional: Weight loss or gain, ability to conduct usual activities. Skin: Rash, itching. Eyes: Double vision, pain. ENT/Mouth: Nose bleeding, neck stiffness, pain, tenderness. Cardiovascular: Palpitations, dyspnea on exertion, orthopnea. Respiratory: Shortness of breath, wheezing, cough, hemoptysis, fever or night sweats. Gastrointestinal: Poor appetite, abdominal pain, heartburn, nausea, vomiting, constipation, or diar magen. Genitourinary: Urgency, frequency, dysuria, nocturia. Musculoskeletal: Pain, swelling. Neurologic/Psychiatric: Anxiety, depression. Allergy/Immunologic: Skin rash, bleeding tendency. PAST MEDICAL HISTORY: Chronic hepatitis C, chronic cirrhosis of liver secondary to chronic hepatiti s C, multiple admissions in our hospital for hepatic encephalopathy, medication noncompliance, chron ic atrial fibrillation, hypertension, chronic kidney disease stage 3, COPD, diet controlled diabetes , history of polysubstance abuse in past, and glaucoma. PAST SURGICAL HISTORY: History of TIPS procedure, multiple upper endoscopy was performed in the [facility] t. PAST PSYCHIATRIC HISTORY: Polysubstance abuse, medication noncompliance, and schizophrenia. FAMILY HISTORY: Diabetes and hypertension runs among several family members. No strong family hist ory of coronary artery disease, stroke or cancer. SOCIAL HISTORY: Patient is currently from [facility]. No history of tobacco, alcohol or illicit d rug abuse as per half-way record, but he has a remote history of polysubstance abuse. ALLERGIES: PENICILLIN. CURRENT HOME MEDICATIONS: The patient was discharged to half-way on the following medications: Aspirin 81 mg p.o. daily, Cardizem-CD 240 mg p.o. b.i.d., vitamin B12 1000 mcg p.o. daily, folic acid 1 mg p.o. daily, lactulose 60 grams p.o. t.i.d., Remeron 30 mg p.o. at bedtime, Protonix 40 mg p.o. daily , rifaximin 550 mg p.o. b.i.d., Aldactone 50 mg p.o. daily, thiamine 100 mg p.o. daily. EMERGENCY ROOM COURSE: Patient is given Zosyn, lactulose 20 gram and IV fluid at 75 mL per hour. PHYSICAL EXAMINATION: VITAL SIGNS: On arrival, blood pressure 118/70, pulse 89, respiratory rate 22, temperature 97.4, sa turation 97% on room air, weight 113.4 kilograms. GENERAL: Patient is currently lethargic, sleepy, arousable, but does not want to talk, no obvious a cute distress. HEAD: Normocephalic, atraumatic. EYES: Pupils round, reactive to light. Extraocular muscle intact. ENT: Oropharynx within normal limits. Moist mucous membranes. No oral lesions. No pharyngeal refugio thema, no exudate. NECK: Supple, no JVD, no thyromegaly, no carotid bruit. LUNGS: Clear to auscultation without any rhonchi or rales. CARDIAC: S1, S2 regular without any murmur. ABDOMEN: Soft and obesity present. Bowel sounds present, nontender, nondistended. No organomegaly , no mass, no suprapubic tenderness. BACK: Examination unremarkable. No CVA tenderness. EXTREMITIES: Upper extremity passive movements of all joints are normal. Lower extremity passive m ovements of all joints are normal, no gross edema noted. NEUROLOGIC: The patient is moving all four limbs. Detailed neurological examination is not possibl e because he is not cooperative. SKIN: No skin rash. PSYCHIATRIC: Unable to assess at this point. IMAGING AND SIGNIFICANT LABORATORY DATA: 1. CT brain based on my review, no acute intracranial process. 2. Chest x-ray based on my review, no acute cardiopulmonary process. 3. CBC: WBC 3.9, hemoglobin 12.1, MCV 104, platelets 153. 4. VBG: pH 7.37, bicarbonate 23.1, CO2 39.6, O2 116.3. 5. BMP: Sodium 136, potassium 3.9, chloride 106, carbon dioxide 19, BUN 13, creatinine 1.31, gluco se 102, calcium 9.2. 6. LFT: AST 89, ALT 41, alkaline phosphatase 126, albumin 2.9. TSH 3.31. Cardiac enzymes negativ e x3. Ammonia level 50. 7. Urinalysis suggestive of urinary tract infection. Urine drug screen positive for benzodiazepine s. Serum drug screen negative. ASSESSMENT AND PLAN/IMPRESSION: 1. Acute encephalopathy. This patient at this time does not have any hepatic encephalopathy. Most likely, this patient has altered mental status probably from urinary tract infection. It is very d ifficult to exclude his pretending behavior. This patient does not have any focal neurological defi cit and his CT brain is negative for any acute intracranial process. 2. Acute urinary tract infection. Based on previous culture result from hospital, we will continue with meropenem 1 gram IV q.8 hourly and we will follow up on culture result. If we have to dischar ge him tomorrow, then we will consider discharging him on Bactrim or Macrobid based on previous cult ure result. 3. Mild acute kidney injury. The patient has received IV fluid in the emergency room. At this poi nt, patient does not need any more IV fluid. We will continue with repeat basic metabolic panel bear orrow. 4. Recurrent hepatic encephalopathy. We will continue to treat with lactulose 60 grams p.o. t.i.d. along with rifaximin 550 mg p.o. b.i.d. 5. Cirrhosis of liver secondary to chronic hepatitis C. The patient is currently stable. 6. Chronic hepatitis C. The patient is not on any specific treatment for that problem. 7. Chronic atrial fibrillation. We will continue Cardizem-CD 240 mg p.o. b.i.d. and aspirin 81 mg p.o. daily. 8. Microcytic anemia. We will continue folic acid, vitamin B12 and thiamine while in hospital. 9. Gastroesophageal reflux disease. We will continue Protonix 40 mg p.o. daily. 10. Obesity with body mass index 32, weight loss education will be given. 11. Deep venous thrombosis prophylaxis, sequential compression device boots. No Lovenox because we are expecting discharge in 24 hours. 12. Gastrointestinal prophylaxis, Protonix 40 mg p.o. daily. 13. Code status: The patient is FULL CODE. Patient does not have any surrogate decision maker. Disposition and plan based on clinical course. This patient has court date tomorrow and then we will try to let him go to half-way tomorrow so he can m cliff his hearing in court tomorrow.
[2016-12-09] MEDS ORDERED: Meropenem 1 GM in Sodium Chloride 0.9% 100 ML IVPB SCH (14:00)
[2016-12-09] MEDS ORDERED: Mirtazapine 30 MG TAB PO SCH (21:00)
[2016-12-10] MEDS: Meropenem 1 GM, Admixture Fee 1 EACH in Sterile Water 20 ML SLOW IVP SCH (02:46)
[2016-12-10] MEDS: Spironolactone 25 MG TAB PO SCH (07:49)
[2016-12-10] MEDS: Cyanocobalamin (Vitamin B-12) 1,000 MCG TAB PO SCH ×2 (07:50→07:55)
[2016-12-10] MEDS: Aspirin 81 mg Enteric Coated Tablet PO SCH (07:50)
[2016-12-10] MEDS: Folic Acid 1 MG TAB PO SCH (07:50)
[2016-12-10] MEDS: Rifaximin 550 MG TAB PO SCH (07:54)
[2016-12-10 08:04] LABS: Hematocrit 35.5 % (42.0-52.0); Mean Platelet Volume 8.2 fL (7.4-10.4); Red Blood Cell (RBC) Count 3.38 mill/uL (4.70-6.10); White Blood Cell (WBC) Count 5.1 thou/uL (4.8-10.8)
[2016-12-10 08:20] LABS: Anion Gap 16 mmol/L (10-20); BUN (Urea Nitrogen) 13 mg/dL (8.4-25.7); Calc. Creatinine Clearance 87 mL/min (70-130); Calcium 8.8 mg/dL (7.8-10.44); Carbon Dioxide 17 mmol/L (22-29); Chloride 109 mmol/L (98-107); Estimated GFR-MDRD 63
[2016-12-10 08:25] LABS: Band 1 % (5-11); Macrocytosis SLIGHT = 6-15 cells (100X) (0-5/hpf); Neutrophil 50 % (42-75); Polychromasia SLIGHT = 2-3 cells (100X) (0-2/hpf)
[2016-12-10 08:30] VITALS: BP 130/83; TEMP 97.8
--- NOTE | 2016-12-10 12:31 | DIS ---
DATE OF ADMISSION: 12/09/2016 DATE OF DISCHARGE: 12/10/2016 PRIMARY CARE PHYSICIAN: [facility] Call Admission DISCHARGE DISPOSITION: Custodial. PRIMARY DISCHARGE DIAGNOSIS: Urinary tract infection. SECONDARY DISCHARGE DIAGNOSES: Chronic atrial fibrillation, cirrhosis of liver, chronic hepatitis C , chronic kidney disease stage 3, chronic obstructive pulmonary disease, gastroesophageal reflux dis ease, hypertension, macrocytic anemia, medical noncompliance, polysubstance abuse. PRIMARY PROCEDURE/OPERATION: None. RADIOLOGICAL INVESTIGATION: CT brain and chest x-ray. SIGNIFICANT LABORATORY DATA: Hemoglobin 11.9, creatinine 1.39. Urinalysis suggestive of UTI. DISCHARGE MEDICATIONS: Macrobid 100 mg p.o. b.i.d. for 7 days, aspirin 81 mg p.o. daily, vitamin B1 2 1000 mcg p.o. daily, Cardizem-CD 240 mg p.o. b.i.d., folic acid 1 mg p.o. daily, lactulose 60 g p. o. t.i.d., Remeron 30 mg p.o. at bedtime, Protonix 40 mg p.o. daily, rifaximin 550 mg p.o. b.i.d., A ldactone 50 mg p.o. daily, thiamine 100 mg p.o. daily. CONTRAINDICATIONS: None. CODE STATUS: FULL CODE. INPATIENT CONSULTANTS: None. ALLERGIES: PENICILLIN. DISCHARGE PLAN: Post hospital, the patient is discharged to custodial. HOSPITAL COURSE: A 61-year-old male who was admitted for urinary tract infection. He had mildly ac citizen [place] altered mental status and this time he was not having any hepatic encephalopathy. He was altere d may be because of urinary tract infection and we treated him with meropenem while in hospital. On discharge, we changed to Macrobid based on his previous culture and sensitivity result. This patie nt was back to his baseline and today we are discharging him to the custodial. Today, he also has court date. PHYSICAL EXAMINATION: GENERAL: The patient seen and examined at bedside today. VITAL SIGNS: Currently, temperature 97.8, pulse 93, respiratory rate 20, saturation 97%, blood pres sure 130/83. GENERAL: The patient is currently alert, awake, no acute distress. HEAD: Normocephalic, atraumatic. LUNGS: Clear. CARDIAC: S1, S2 regular without any murmur. ABDOMEN: Soft and benign. EXTREMITIES: No edema. NEUROLOGIC: Nonfocal examination. Overall, patient is medically stable for discharge today.
--- NOTE | 2016-12-13 20:18 | EKG ---
Test Reason : Blood Pressure : / mmHG Vent. Rate : 086 BPM Atrial Rate : 159 BPM P-R Int : 000 ms QRS Dur : 090 ms QT Int : 404 ms P-R-T Axes : 000 080 -78 degrees QTc Int : 483 ms Atrial fibrillation Abnormal ECG No changes . Confirmed by STEPHENIE WALKER D.O. ([id number]), editor book SABR[facility] [place] ([id number]) on 12/13/2016 8:18:31 PM Referred By: Confirmed By:STEPHENIE WALKER D.O.
== END 2016-12-10 08:14 ==
LOC: ERS 00:51 → T4-A 03:25
PROVIDERS: ADMIT Internal Medicine; ATTEND Internal Medicine
DX: I48.2 Chronic atrial fibrillation (principal); K74.60 Unspecified cirrhosis of liver; B18.2 Chronic viral hepatitis C; E11.22 Type 2 diabetes mellitus with diabetic chronic kidney disease; I12.9 Hypertensive chronic kidney disease with stage 1 through stage 4 chronic kidney disease, or unspecified chronic kidney disease; N18.3 Chronic kidney disease, stage 3 (moderate); J44.9 Chronic obstructive pulmonary disease, unspecified; K21.9 Gastro-esophageal reflux disease without esophagitis; D53.9 Nutritional anemia, unspecified; R41.82 Altered mental status, unspecified; F10.10 Alcohol abuse, uncomplicated; F20.9 Schizophrenia, unspecified; N17.9 Acute kidney failure, unspecified; K72.90 Hepatic failure, unspecified without coma; E66.9 Obesity, unspecified; F17.200 Nicotine dependence, unspecified, uncomplicated; Z68.32 Body mass index [BMI] 32.0-32.9, adult; Z91.14 Patient's other noncompliance with medication regimen; Z79.82 Long term (current) use of aspirin; Z79.899 Other long term (current) drug therapy; Z88.0 Allergy status to penicillin; Z98.890 Other specified postprocedural states; Z86.59 Personal history of other mental and behavioral disorders
CPT/HCPCS: 70450; 71010; 80048; 80306; 80307; 82140 ×2; 82330; 82435; 82550; 82553; 82803; 82962; 84132; 84295; 84484 ×2; 85014; 85025; 93005; 96361 ×2; 96365; 96375; 96376 ×2; 99285; G0008; G0378; Q2036; 36415; 36416; 80053; 81003; 81015; 84443; 90471; 90682; A4216; J2185; J2543; J7050